=== PATIENT | female | born 1950 | race Caucasian/White ===

== ENCOUNTER → 2016-03-04 | Outpatient (REF) ==
[~2016-03-04] MED LIST: BYETTA 5MC300 MCG/SY SC; CALMOSEPTINE OI71 GM TP; CELEXA 20MG20 MG/TAB PO; CETAPHIL1 CRE TP; COLACE 100100 MG/CAP PO; COUMADIN4 MG PO; FENTANYL 75MCG TD; FERROUS SULFATE65 MG PO; FOLIC ACID 11 MG/TA1 PO; GLUCOPHAGE850 MG/TAB PO; INSULIN HUMA100 U/ML SC; INTESTINEX1 CA1 PO; LASIX 40MG TABL40 MG PO; MIRALAX PA17 GM/Dose PO; MOBIC15 MG PO; MULTIVITAMIN1 CTB PO; NEURONTIN400 MG/CAP PO; PAIN RELIE MM; PHENERGAN50 MG/SUPP RC; PRILOSEC 20MG20 MG PO; SYNTHROID0.075 MG/T PO; TUMS500 MG PO; ULTRAM 50MG TAB50 MG PO; VICKS VAPORUB 41 OIN TP; XANAX .25M0.25 MG/TA PO; ZOFRAN8 MG PO; [UNRECOGNIZED DRUG - OTHER] TP
== END ==
LOC: ZLAB.WCH 09:46
DX: Z01.89 Encounter for other specified special examinations (principal)

== ENCOUNTER → 2016-06-08 | Outpatient (CLI) | payer MEDICARE, MEDICAID | LOC: BHSO 14:06 | DX: F33.42 Major depressive disorder, recurrent, in full remission (principal) ==

== ENCOUNTER → 2016-06-24 | Outpatient (CLI) | payer MEDICARE, MEDICAID | LOC: COL.RAD 10:22 | DX: K74.69 Other cirrhosis of liver (principal); R16.1 Splenomegaly, not elsewhere classified; K80.20 Calculus of gallbladder without cholecystitis without obstruction; I86.8 Varicose veins of other specified sites ==

== ENCOUNTER 2019-07-12 17:06 | Inpatient (IN) | payer MEDICARE ==
[~2019-07-12] VITALS: Ht 172.7 cm; Wt 143.2 kg
[2019-07-12] VITALS (65 sets, daily range): BP systolic 192–200; BP diastolic 66–73; PULSE 70–74; TEMP 98.2; O2SAT 79–100
[2019-07-12 17:40] LABS: BASO % 0.8 % (0.0-2.0); EOS # 0.1 (0.0-0.7); EOS % 2.2 % (0-4.0); GRAN # 3.6 (1.4-6.5); GRAN % 70.9 % (42.2-75.2); HEMATOCRIT 29.1 % (37.0-47.0); HEMOGLOBIN 9.6 g/dl (12.5-16.0); LYMPH # 0.9 (1.2-3.4); LYMPH % 18.7 % (20.0-51.0); MEAN CELL VOLUME 99 fl (80.0-100.0); MEAN CORPUSCULAR HEMOGLOBIN 33 pg (27.0-31.0); MEAN CORPUSCULAR HGB CONC 33 g/dl (33.0-37.0); MONO # 0.4 (0.1-0.6); PLATELET COUNT 99 K/mm3 (130-400); RED BLOOD COUNT 2.93 M/mm3 (4.10-5.30); REDCELL DISTRIBUTION WIDTH-CV 14.8 % (11.5-14.5)
[2019-07-12 17:49] LABS: ALBUMIN 2.4 gm/dL (3.5-5.0); BILIRUBIN,TOTAL 1.1 mg/dL (0.0-1.0); CALCIUM 7.7 mg/dL (8.4-10.2); CREATININE, serum 1.52 (0.52-1.25); POTASSIUM 3.5 mmol/L (3.4-5.0); TOTAL PROTEIN 6.2 gm/dL (6.4-8.2)
[2019-07-12 18:10] LABS: TROPONIN-I 0.037 ng/mL (0.000-0.035)
[2019-07-12] MEDS ORDERED: LANTUS100 U/ML SQ (18:32)
[2019-07-12 18:33] LABS: COLLECTION METHOD CATHETER
[2019-07-12] MEDS ORDERED: HUMALOG100 U/ML SQ (18:34)
[2019-07-12] MEDS ORDERED: LASIX 20MG TABL20 MG PO (18:35)
[2019-07-12] MEDS ORDERED: CRESTOR20 MG PO (18:35)
[2019-07-12 18:51] LABS: BUDDING YEAST Present /hpf; MUCOUS Present /lpf; PH 5 (5-8); SQUAMOUS EPITHELIAL None Seen /hpf; URINE APPEARANCE Hazy; URINE BACTERIA Many /hpf; URINE BILIRUBIN Negative (NEGATIVE); URINE BLOOD 1+ (NEGATIVE); URINE COLOR Amber; URINE GLUCOSE Negative (NEGATIVE); URINE KETONE Negative (NEGATIVE); URINE LEUKOCYTE ESTERASE Negative (NEGATIVE); URINE NITRATE Negative (NEGATIVE); URINE PROTEIN(semi-quant) 3+ (NEGATIVE)
--- NOTE | 2019-07-12 21:30 | NUR ---
Arrived via stretcher; alert and oriented upon arrival. Patient became very anxious and fearful during transfer from ED cot to ICU bed. Staff utilized verbal cues to assist with calming patient. Reported feeling better after being able to sit up on edge of bed for a few minutes.
[2019-07-12 22:01] LABS: ARTERIAL BLD GAS O2 SATURATION 97.2 % (92-100); ARTERIAL BLD GAS TCO2 CT 23.2; ARTERIAL BLOOD GAS BASE EXCESS -1.8 (-2-2); ARTERIAL BLOOD GAS HCO3 22.1 meq/L (22-26); ARTERIAL BLOOD GAS PCO2 33.7 mmHg (35-45); ARTERIAL BLOOD GAS PO2 90.9 mmHg (80-100); ARTERIAL BLOOD GAS pH 7.44 (7.35-7.45)
[2019-07-12] MEDS ORDERED: ACCUPRIL10 M1 PO (22:28)
[2019-07-13] VITALS (679 sets, daily range): BP systolic 149–190; BP diastolic 51–90; PULSE 57–88; TEMP 98.2–98.7; O2SAT 74–100
--- NOTE | 2019-07-13 05:06 | NUR ---
Resting in bed; no concerns at this time.
--- NOTE | 2019-07-13 07:30 | NUR ---
BEDSIDE REPORT RECEIVED FROM AGA WEIR. PATIENT LYING IN BED C/O IV IN RIGHT FOREARM. PATIENT HAS NITRO GTT INFUSING AT THIS TIME. IV APPEARS TO BE FINE, BUT WHEN PALPATED, SHE C/O PAIN. IV DISCONTINUED AND ANOTHER IV STARTED IN SAME ARM, DIFFERENT SITE. PATIENT PLEASED WITH THIS CHANGE. WILL CONTINUE TO MONITOR.
[2019-07-13 09:29] LABS: BASO % 0.7 % (0.0-2.0); EOS # 0.1 (0.0-0.7); EOS % 2.7 % (0-4.0); GRAN # 2.6 (1.4-6.5); GRAN % 63.7 % (42.2-75.2); LYMPH % 24.5 % (20.0-51.0); MEAN CELL VOLUME 98 fl (80.0-100.0); MEAN CORPUSCULAR HGB CONC 35 g/dl (33.0-37.0); MEAN PLATELET VOLUME 9.1 fl (7.4-10.4); MONO # 0.3 (0.1-0.6); MONO % 8.2 % (1.7-9.3); PLATELET COUNT 83 K/mm3 (130-400); RED BLOOD COUNT 2.45 M/mm3 (4.10-5.30); REDCELL DISTRIBUTION WIDTH-CV 14.7 % (11.5-14.5)
[2019-07-13 09:42] LABS: BILIRUBIN,TOTAL 1.3 mg/dL (0.0-1.0); CALCIUM 7.7 mg/dL (8.4-10.2); CREATININE, serum 1.52 (0.52-1.25); POTASSIUM 3.6 mmol/L (3.4-5.0); TOTAL PROTEIN 5.2 gm/dL (6.4-8.2)
[2019-07-13 09:44] LABS: HEMOGLOBIN 8.3 g/dl (12.5-16.0); MEAN CORPUSCULAR HEMOGLOBIN 34 pg (27.0-31.0)
--- NOTE | 2019-07-13 15:36 | NUR ---
PATIENT UP TO RECLINER THIS AM. THEN MOVED TO WHEELCHAIR D/T DISCOMFORT, AND THEN AFTER LUNCH, PATIENT IS MOVED BACK TO BED. SHE IS 2:1 ASSIST AND HAS A LOT OF ANXIETY WITH TRANSFERS. WILL CONTINUE TO MONITOR
--- NOTE | 2019-07-13 16:50 | NUR ---
TATE met with the patient to discuss discharge plan. The patient lives alone in [place]. Her daughter, Lena Mtz" (ph#[phone]), also lives in [place]. She reports needing some assistance with bathing and has a walker and wheelchair. She receives private duty services from [facility] three times a week to assist her with bathing and housekeeping. The patient's PCP is Dr. Magnus Garrison and she receives her medications at [facility]. She reports occasional difficulties affording her meds. The patient does not have advanced directives in EMR, but she reports that she believe she has them completed and that her daughter has the documents. She states that she would have designated Lena as her DPOA-HC. The patient has three children: Lena, Saray, and Héctor. The patient plans to return home upon discharge. She states that she would be interested in home health services for correction. TATE provided the patient with Medicare.gov's list of home health agencies that serve [place]. The patient reports that she would like some time to look over the list. SW to continue to follow.
--- NOTE | 2019-07-13 19:13 | NUR ---
REPORT GIVEN TO AGA WEIR. PATIENT RESTING IN BED WITH NO COMPLAINTS. VSS
--- NOTE | 2019-07-13 20:45 | NUR ---
Assisted up to bedside commode via two assist. Patient anxious and hesitant while standing up. Staff assisted with verbal cues to help reassure patient during transfer. Assisted back to bed. Patient reported feeling "much better" after emptying bladder. Assisted with bed bath at this time. Will continue to monitor.
--- NOTE | 2019-07-13 21:50 | NUR ---
Updated daughter on patient's status via phone. Questions and concerns addressed at this time.
[2019-07-14] VITALS (710 sets, daily range): BP systolic 117–163; BP diastolic 43–68; PULSE 56–62; TEMP 98.5–98.9; O2SAT 73–100
--- NOTE | 2019-07-14 03:57 | NUR ---
Resting in bed with eyes shut; no concerns or complaints at this time
[2019-07-14 06:24] LABS: BASO % 0.8 % (0.0-2.0); EOS # 0.2 (0.0-0.7); EOS % 4.3 % (0-4.0); GRAN # 2.1 (1.4-6.5); GRAN % 53.5 % (42.2-75.2); LYMPH # 1.3 (1.2-3.4); LYMPH % 32.7 % (20.0-51.0); MEAN CELL VOLUME 100 fl (80.0-100.0); MEAN CORPUSCULAR HGB CONC 33 g/dl (33.0-37.0); MEAN PLATELET VOLUME 9.2 fl (7.4-10.4); MONO # 0.3 (0.1-0.6); MONO % 8.4 % (1.7-9.3); PLATELET COUNT 81 K/mm3 (130-400); RED BLOOD COUNT 2.26 M/mm3 (4.10-5.30); REDCELL DISTRIBUTION WIDTH-CV 14.7 % (11.5-14.5)
[2019-07-14 06:26] LABS: HEMATOCRIT 22.7 % (37.0-47.0); HEMOGLOBIN 7.5 g/dl (12.5-16.0); MEAN CORPUSCULAR HEMOGLOBIN 33 pg (27.0-31.0)
[2019-07-14 06:33] LABS: CALCIUM 7.6 mg/dL (8.4-10.2); CREATININE, serum 1.62 (0.52-1.25); MAGNESIUM 1.9 mg/dL (1.6-2.3); POTASSIUM 3.3 mmol/L (3.4-5.0)
[2019-07-14 07:04] LABS: TSH w REFLEX 9.26 uIU/mL (0.465-4.680)
--- NOTE | 2019-07-14 08:00 | NUR ---
Shift assessment complete at this time. Plan of care reviewed at bedside with patient. Additional time taken to address any other needs or concerns. Vitals stable at this time. Pt denies pain or any other discomforts. Bed in low position, call light within reach, will continue to monitor.
--- NOTE | 2019-07-14 14:00 | NUR ---
Called Dr Grant to clarify discharge orders. Pt is not to be discharged today. Pt to remain inpatient, medical status.
--- NOTE | 2019-07-14 14:55 | NUR ---
Phone report given to [facility] RN.
--- NOTE | 2019-07-14 15:25 | NUR ---
Pt transferred to room 355 via personal wheelchair. Pt transferred to bed with x1 assist. HOB up at 45 degrees. Heels elevated on pillow. Call light within reach. Nurses station notified pt arrived and request another pillow.
--- NOTE | 2019-07-14 20:00 | NUR ---
Received report from [facility]. Patient is awake, lying in bed. She is alert and oriented. Noted to have +3 bilateral lower extremity edema, With INT on left AC. Assisted patient to bedside commode to urinate. She can get up with one assist. She complains of pain in the back but she thinks it's because of the bed but she refuses for any pain meds. Call light within reach.
--- NOTE | 2019-07-14 23:00 | NUR ---
Patient's INT starts to leak when tried to flush. This nurse tried to reinsert but failed. Charge nurse Aryan tried to reinsert as well but failed. Pharmacy General Manager tried and was able to insert on right hand, G22.
[2019-07-15 00:13] VITALS: BP 170/41; PULSE 57; TEMP 97.8
[2019-07-15 04:36] VITALS: BP 150/34; PULSE 56; TEMP 97.8
--- NOTE | 2019-07-15 06:31 | NUR ---
Patient was up every 2 hours to urinate in bedside commode. She complains of pain on her back which is 9/10. Tylenol PRN given. Will endorse to day shift nurse.
[2019-07-15 07:55] LABS: BASO % 0.9 % (0.0-2.0); EOS # 0.2 (0.0-0.7); EOS % 4.7 % (0-4.0); GRAN # 2.3 (1.4-6.5); GRAN % 55.2 % (42.2-75.2); LYMPH # 1.3 (1.2-3.4); LYMPH % 29.8 % (20.0-51.0); MEAN CELL VOLUME 100 fl (80.0-100.0); MEAN CORPUSCULAR HGB CONC 34 g/dl (33.0-37.0); MEAN PLATELET VOLUME 9.6 fl (7.4-10.4); MONO # 0.4 (0.1-0.6); MONO % 9.2 % (1.7-9.3); PLATELET COUNT 88 K/mm3 (130-400); RED BLOOD COUNT 2.34 M/mm3 (4.10-5.30); RETIC # 0.11 M/mm3 (0.02-0.16); RETIC % 4.8 % (0.5-3.52)
[2019-07-15 07:56] VITALS: BP 142/36; PULSE 57; TEMP 98.1
[2019-07-15 08:02] LABS: HEMATOCRIT 23.5 % (37.0-47.0); HEMOGLOBIN 7.9 g/dl (12.5-16.0); MEAN CORPUSCULAR HEMOGLOBIN 34 pg (27.0-31.0)
[2019-07-15 08:04] LABS: INR 1.2 (0.8-3.0); PROTHROMBIN TIME 13.3 SECONDS (9.7-12.8)
[2019-07-15 08:14] LABS: CALCIUM 7.6 mg/dL (8.4-10.2); CREATININE, serum 1.7 (0.52-1.25); IRON,SERUM 74 ug/dL (35-150); MAGNESIUM 1.8 mg/dL (1.6-2.3); POTASSIUM 3.6 mmol/L (3.4-5.0)
[2019-07-15 08:24] LABS: TOTAL IRON BINDING CAPACITY 216 ug/dL (265-497)
[2019-07-15 12:08] VITALS: BP 145/40; PULSE 56; TEMP 98.2
[2019-07-15 16:09] VITALS: BP 130/36; PULSE 57; TEMP 97.8
[2019-07-15 20:17] VITALS: BP 158/57; PULSE 61; TEMP 98
--- NOTE | 2019-07-15 20:30 | NUR ---
Initial shift assessment done- needing to use BSC- 2 person assist up to BSC, pt states shes not voiding as much as when she was on IV lasix{now on p.o lasix} states having back pain 5/10, anxious when trying to get up/back to bed-- will give xanax at this time also, Tele on.
[2019-07-16 00:56] VITALS: BP 160/33; PULSE 58; TEMP 98.6
[2019-07-16 04:19] VITALS: BP 147/40; PULSE 59; TEMP 97.6
--- NOTE | 2019-07-16 04:45 | NUR ---
Will give Tramadol and Xanax at this time, states back pain 09/30, anxious, up to BSC with 2 assists- Tele on, VSS
[2019-07-16 07:07] VITALS: BP 151/39; PULSE 56; TEMP 97.7
[2019-07-16 07:20] LABS: BASO % 0.9 % (0.0-2.0); EOS # 0.1 (0.0-0.7); EOS % 4.3 % (0-4.0); GRAN # 1.8 (1.4-6.5); GRAN % 54.5 % (42.2-75.2); LYMPH % 31.4 % (20.0-51.0); MEAN CELL VOLUME 102 fl (80.0-100.0); MEAN CORPUSCULAR HGB CONC 33 g/dl (33.0-37.0); MEAN PLATELET VOLUME 9.3 fl (7.4-10.4); MONO # 0.3 (0.1-0.6); MONO % 8.6 % (1.7-9.3); PLATELET COUNT 76 K/mm3 (130-400); RED BLOOD COUNT 2.31 M/mm3 (4.10-5.30); REDCELL DISTRIBUTION WIDTH-CV 15.3 % (11.5-14.5)
[2019-07-16 07:27] LABS: BILIRUBIN,TOTAL 1.1 mg/dL (0.0-1.0); CALCIUM 7.5 mg/dL (8.4-10.2); CREATININE, serum 1.95 (0.52-1.25); MAGNESIUM 1.8 mg/dL (1.6-2.3); POTASSIUM 3.5 mmol/L (3.4-5.0); TOTAL PROTEIN 5.3 gm/dL (6.4-8.2)
[2019-07-16 07:32] LABS: HEMATOCRIT 23.5 % (37.0-47.0); HEMOGLOBIN 7.7 g/dl (12.5-16.0); MEAN CORPUSCULAR HEMOGLOBIN 33 pg (27.0-31.0)
--- NOTE | 2019-07-16 08:37 | NUR ---
Pt awake and alert upon entry, some C/O pain this morning, shift assessments complete, left Pt call light in reach, bed in lowest position.
[2019-07-16] MEDS ORDERED: DIFLUCAN200 MG PO (09:33)
[2019-07-16] MEDS ORDERED: APRESOLINE50 MG PO ×3 (09:34→11:29)
[2019-07-16] MEDS ORDERED: ALDACTONE 25MG25 M1 PO ×2 (09:34)
[2019-07-16] MEDS ORDERED: LASIX 80MG TABL80 MG PO ×2 (09:35)
[2019-07-16] MEDS ORDERED: K-DUR20 MEQ PO (11:29)
[2019-07-16] MEDS ORDERED: LASIX 40MG TABL40 MG PO (11:29)
--- NOTE | 2019-07-16 11:50 | NUR ---
TATE was contacted by the pediatric acute care unit nurse and notified the hospitalist is recommending home health for the patient. TATE contacted the patient and she was agreeable to home health and from [facility]. TATE contacted and faxed a referral to Michelle at [facility]. [facility] reports that they are able to accept the patient for services. The patient is to discharge back home today, 07/15, with home health services for usp/PT/OT through [facility]. No additional needs at this time.
--- NOTE | 2019-07-16 13:32 | NUR ---
Pt discharged to home, discussed discharge instructions with Pt, answered all questions. Escorted Pt to entrance with PCT, assisted Pt into vehicle, Pt left with family via private transportation.
== END 2019-07-16 12:45 | disposition home or self-care (01) | DRG 291 ==
LOC: COL.ER 17:06 → ICU 18:41 → MEDICAL 07-14 15:11
PROVIDERS: Emergency Medicine; Internal Medicine; Internal Medicine Critical Care Medicine; Nurse Practitioner Family; ADMIT Student in an Organized Health Care Education/Training Program
DX: I13.0 Hypertensive heart and chronic kidney disease with heart failure and stage 1 through stage 4 chronic kidney disease, or unspecified chronic kidney disease (principal); I50.33 Acute on chronic diastolic (congestive) heart failure; D61.818 Other pancytopenia; N39.0 Urinary tract infection, site not specified; E87.70 Fluid overload, unspecified; E11.22 Type 2 diabetes mellitus with diabetic chronic kidney disease; E78.5 Hyperlipidemia, unspecified; E03.9 Hypothyroidism, unspecified; G89.29 Other chronic pain; K74.60 Unspecified cirrhosis of liver; N18.3 Chronic kidney disease, stage 3 (moderate); E66.01 Morbid (severe) obesity due to excess calories; B96.89 Other specified bacterial agents as the cause of diseases classified elsewhere; R00.1 Bradycardia, unspecified; K72.90 Hepatic failure, unspecified without coma; D69.6 Thrombocytopenia, unspecified; Z86.718 Personal history of other venous thrombosis and embolism; Z79.4 Long term (current) use of insulin
CPT/HCPCS: 99223-AI; 99232-AI; 99239; J1450; J1644; J1815; J1940; J2405

== ENCOUNTER → 2019-08-21 | Outpatient (CLI) | payer MEDICARE ==
[~2019-08-21] MED LIST changes: +ACCUPRIL10 M1 PO; +ALDACTONE 25MG25 M1 PO; +APRESOLINE50 MG PO; +CRESTOR20 MG PO; +DIFLUCAN200 MG PO; +HUMALOG100 U/ML SQ; +K-DUR20 MEQ PO; +LANTUS100 U/ML SQ; +LASIX 20MG TABL20 MG PO; +LASIX 80MG TABL80 MG PO
== END ==
LOC: COL.RAD 08:59
DX: D61.818 Other pancytopenia (principal); R16.1 Splenomegaly, not elsewhere classified

== ENCOUNTER 2019-11-11 14:05 | Inpatient (IN) | payer MEDICARE ==
[2019-11-11] VITALS (188 sets, daily range): BP systolic 170; BP diastolic 58; PULSE 72–75; TEMP 97.8–98; O2SAT 98–100
[~2019-11-11] VITALS: Ht 175.3 cm; Wt 126.0 kg
[2019-11-11 15:08] LABS: BASO % 0.9 % (0.0-2.0); EOS # 0.1 (0.0-0.7); EOS % 1.8 % (0-4.0); GRAN # 2.4 (1.4-6.5); GRAN % 72.4 % (42.2-75.2); LYMPH # 0.5 (1.2-3.4); LYMPH % 16.4 % (20.0-51.0); MEAN CELL VOLUME 100 fl (80.0-100.0); MEAN CORPUSCULAR HGB CONC 32 g/dl (33.0-37.0); MEAN PLATELET VOLUME 10.4 fl (7.4-10.4); MONO # 0.3 (0.1-0.6); MONO % 8.2 % (1.7-9.3); PLATELET COUNT 69 K/mm3 (130-400); RED BLOOD COUNT 2.49 M/mm3 (4.10-5.30); REDCELL DISTRIBUTION WIDTH-CV 14.2 % (11.5-14.5)
[2019-11-11 15:17] LABS: HEMATOCRIT 24.8 % (37.0-47.0); HEMOGLOBIN 7.9 g/dl (12.5-16.0); MEAN CORPUSCULAR HEMOGLOBIN 32 pg (27.0-31.0)
[2019-11-11 15:33] LABS: ALBUMIN 2.8 gm/dL (3.5-5.0); BILIRUBIN,TOTAL 0.6 mg/dL (0.0-1.0); CALCIUM 8.1 mg/dL (8.4-10.2); CREATININE, serum 1.86 (0.52-1.25); POTASSIUM 3.9 mmol/L (3.4-5.0); TOTAL PROTEIN 5.9 gm/dL (6.4-8.2)
[2019-11-11 16:29] LABS: COLLECTION METHOD CLEAN CATCH
[2019-11-11 16:38] LABS: PH 5 (5-8); SQUAMOUS EPITHELIAL 0-2 /hpf; URINE APPEARANCE Cloudy; URINE BACTERIA Moderate /hpf; URINE BILIRUBIN Negative (NEGATIVE); URINE BLOOD Negative (NEGATIVE); URINE COLOR Yellow; URINE GLUCOSE Negative (NEGATIVE); URINE KETONE Negative (NEGATIVE); URINE LEUKOCYTE ESTERASE 3+ (NEGATIVE); URINE NITRATE Negative (NEGATIVE); URINE PROTEIN(semi-quant) 1+ (NEGATIVE); URINE RBC 0-2 /hpf; URINE UROBILINOGEN Negative (NEGATIVE)
--- NOTE | 2019-11-11 19:12 | NUR ---
Bedside report received from AGA Li
[2019-11-11] MEDS ORDERED: ALDACTONE 25MG25 M1 PO (19:20)
[2019-11-11] MEDS ORDERED: COLACE 100100 MG/CAP PO (19:25)
[2019-11-11] MEDS ORDERED: VELTASSA8.4 GM PO (19:25)
[2019-11-11] MEDS ORDERED: ATARAX50 MG PO (19:27)
--- NOTE | 2019-11-11 20:00 | NUR ---
Patient resting in bed talking to daughter, Elvis, at bedside. Assessment complete. Patient requests to get up to the restroom. Walker obtained and bedside commode, with assistance of AGA Bojorquez, we ae able to get patient up to the commode and back to bed. Assisted patient to a comfortable position. Medications given. No further needs at this time. Will continue to monitor. Call light within reach.
[2019-11-11] MEDS ORDERED: APRESOLINE50 MG PO (21:39)
[2019-11-12] VITALS (611 sets, daily range): BP systolic 132–154; BP diastolic 34–61; PULSE 59–72; TEMP 97.8–99; O2SAT 96–100
[2019-11-12 05:17] LABS: BASO % 0.8 % (0.0-2.0); EOS % 1.6 % (0-4.0); GRAN # 1.8 (1.4-6.5); GRAN % 68.8 % (42.2-75.2); LYMPH # 0.5 (1.2-3.4); LYMPH % 19.7 % (20.0-51.0); MEAN CELL VOLUME 99 fl (80.0-100.0); MEAN CORPUSCULAR HGB CONC 32 g/dl (33.0-37.0); MEAN PLATELET VOLUME 9.9 fl (7.4-10.4); MONO # 0.2 (0.1-0.6); MONO % 8.7 % (1.7-9.3); PLATELET COUNT 56 K/mm3 (130-400); RED BLOOD COUNT 2.13 M/mm3 (4.10-5.30); REDCELL DISTRIBUTION WIDTH-CV 14.4 % (11.5-14.5)
[2019-11-12 05:20] LABS: MEAN CORPUSCULAR HEMOGLOBIN 32 pg (27.0-31.0)
[2019-11-12 05:22] LABS: HEMOGLOBIN 6.8 g/dl (12.5-16.0)
[2019-11-12 05:33] LABS: CALCIUM 8.1 mg/dL (8.4-10.2); CREATININE, serum 1.94 (0.52-1.25); POTASSIUM 4.3 mmol/L (3.4-5.0)
--- NOTE | 2019-11-12 07:33 | NUR ---
Bedside report givent to AGA Martin
--- NOTE | 2019-11-12 15:05 | NUR ---
vineyard worker met with patient to assess for discharge plan. Patient states she lives alone in a senior apartment and that it is handicap accessible. Patient states she has a caregiver that comes into her home 3x's week and assists with activities of daily living, including errands and groceries. Patient states that her two daughters and son also see her daily/weekly and assist with needs. Patient states she is wheelchair bound and can transfer self to chair and toilet. patient's primary continuum of care manager is Dr Decker, that took over for Dr Warren and that she hasn't had her first appointment yet. Patient states she has advance directives on file with the hospital. Patient states she has prescription coverage with a co pay and that she has no concerns for securing medications at this time. Patient is receiving blood this morning during our visit and is very adament that she wants to return home soon.
[2019-11-12 15:30] LABS: IRON,SERUM 75 ug/dL (35-150)
[2019-11-12 15:40] LABS: TOTAL IRON BINDING CAPACITY 269 ug/dL (265-497)
--- NOTE | 2019-11-12 19:10 | NUR ---
Bedside report received from AGA Martin
--- NOTE | 2019-11-12 20:00 | NUR ---
Patient in chair resting with this nurse and her daughter, Saray, helping with a bath and lotion application. Patient changed into new night gown. Assessment complete, see shift assessment for details. Vitals obtained and remain stable. patient has complaints of some pain, but only with movement or touch, and does not request meds at this time. Patient has no further needs. Will continue to monitor. Call light within reach.
--- NOTE | 2019-11-12 22:07 | NUR ---
24hr urine collection started at this time
[2019-11-13] VITALS (326 sets, daily range): BP systolic 117–152; BP diastolic 23–48; PULSE 58–70; TEMP 97.9–98.4; O2SAT 94–100
[2019-11-13 06:20] LABS: BASO % 0.7 % (0.0-2.0); EOS # 0.1 (0.0-0.7); EOS % 4.1 % (0-4.0); GRAN # 1.4 (1.4-6.5); GRAN % 53.6 % (42.2-75.2); HEMATOCRIT 23.9 % (37.0-47.0); HEMOGLOBIN 7.9 g/dl (12.5-16.0); LYMPH # 0.9 (1.2-3.4); LYMPH % 32.7 % (20.0-51.0); MEAN CELL VOLUME 97 fl (80.0-100.0); MEAN CORPUSCULAR HEMOGLOBIN 32 pg (27.0-31.0); MEAN CORPUSCULAR HGB CONC 33 g/dl (33.0-37.0); MEAN PLATELET VOLUME 9.3 fl (7.4-10.4); MONO # 0.2 (0.1-0.6); MONO % 8.2 % (1.7-9.3); PLATELET COUNT 55 K/mm3 (130-400); RED BLOOD COUNT 2.47 M/mm3 (4.10-5.30); REDCELL DISTRIBUTION WIDTH-CV 14.7 % (11.5-14.5)
[2019-11-13 06:33] LABS: ALBUMIN 2.7 gm/dL (3.5-5.0); BILIRUBIN,TOTAL 0.8 mg/dL (0.0-1.0); CALCIUM 7.9 mg/dL (8.4-10.2); CREATININE, serum 2.09 (0.52-1.25); TOTAL PROTEIN 5.7 gm/dL (6.4-8.2)
--- NOTE | 2019-11-13 07:12 | NUR ---
Bedside report given to AGA Li
[2019-11-13 09:00] LABS: KAPPA FREE LIGHT CHAIN-SERUM 102.15 mg/L (()); KAPPA LAMBDA RATIO 1.68 ratio (()); LAMDA FREE LIGHT CHAIN SERUM 60.81 mg/L (())
--- NOTE | 2019-11-13 10:27 | NUR ---
Report given to AGA Moreau up on medical floor. Patient will be going to room 351.
--- NOTE | 2019-11-13 10:56 | NUR ---
The patient tranferred up to the medical floor this morning. SW to continue to follow as needed.
--- NOTE | 2019-11-13 11:30 | NUR ---
Patient arrived to the floor at this time. She is stable and comfortable currently sitting in her wheel chair, wheels locked with bedside table in front of her. She states that she would like to stay like this and does not want to move at this time. Lung sounds are clear, diminished at the bases. Normal heart sounds. Pulses palpable both radial and pedal. No other needs were expressed at this time. Call light is in reach.
--- NOTE | 2019-11-13 18:45 | NUR ---
Patient has been stable since arriving to the floor. She has been to the BSC twice to urinate, 24 urine still being collected. She pivots well but has left leg weakness. She moved from the bed to the chair at this time and says she will stay there for a while. No other needs were expressed at this time. Call light is in reach.
--- NOTE | 2019-11-13 20:30 | NUR ---
Initial shift assessment done- sitting in recliner, states will sit for awhile longer , than will call to get back to bed- states needs to have a BM, hasfrederic had one since Tuesday--no prn ordered,so will call TRAVELING AUDITOR for stool softener. 24 hr urine in progress-will be done at 2200 tonight. Left INT painful--will dc and restart another INT
[2019-11-14] VITALS (8 sets, daily range): BP systolic 123–142; BP diastolic 21–36; PULSE 56–62; TEMP 97.7–98.6
--- NOTE | 2019-11-14 05:00 | NUR ---
Did get up to BSC with 2 asssists- slow and needs alot of encouragement. Seizure prec in place.
[2019-11-14 08:55] LABS: BASO % 0.4 % (0.0-2.0); EOS # 0.1 (0.0-0.7); EOS % 3.8 % (0-4.0); GRAN # 1.4 (1.4-6.5); GRAN % 54.4 % (42.2-75.2); LYMPH # 0.8 (1.2-3.4); LYMPH % 31.8 % (20.0-51.0); MEAN CELL VOLUME 98 fl (80.0-100.0); MEAN CORPUSCULAR HGB CONC 33 g/dl (33.0-37.0); MEAN PLATELET VOLUME 9.8 fl (7.4-10.4); MONO # 0.2 (0.1-0.6); MONO % 9.2 % (1.7-9.3); PLATELET COUNT 51 K/mm3 (130-400); RED BLOOD COUNT 2.43 M/mm3 (4.10-5.30); REDCELL DISTRIBUTION WIDTH-CV 14.6 % (11.5-14.5)
[2019-11-14 08:57] LABS: HEMATOCRIT 23.9 % (37.0-47.0); HEMOGLOBIN 7.8 g/dl (12.5-16.0); MEAN CORPUSCULAR HEMOGLOBIN 32 pg (27.0-31.0)
--- NOTE | 2019-11-14 09:00 | NUR ---
Assessment completed, alert/oriented, vital signs stable, reports generalized "all over" aches, blood sugars are WNL and no neuro deficits noted, patient is weak but is able to get up and transfer with a stand by only assist, heart RRR, distal pulses are palpable, 2+ edema to BLE and feet, lungs CTA/ no respl.difficulty noted, fluid restriction in place, 24hr urine in progress and will be complete at 2200, she refuses SCD's,
[2019-11-14 09:04] LABS: CALCIUM 7.7 mg/dL (8.4-10.2); CREATININE, serum 2.04 (0.52-1.25); POTASSIUM 4.1 mmol/L (3.4-5.0)
--- NOTE | 2019-11-14 11:42 | NUR ---
First visit from the insulating machine operator. No needs right now.
--- NOTE | 2019-11-14 21:00 | NUR ---
Pt assessment completed and documented. Pt alert and oriented x4. Pt assisted from recliner to commode and then her bed. PRN tylenol given per pt request for complaints of hip and buttock pain. INT to right forearm CDI. Pt denies any other needs at this time. Call light within reach. Will continue to monitor
[2019-11-15 03:29] VITALS: BP 132/33; PULSE 61; TEMP 98.4
--- NOTE | 2019-11-15 05:15 | NUR ---
Pt rested intermittently overnight. States she is ready to be home so she can sleep in her recliner. No further reports of pain after PRN tylenol was given per request. Pt denies any other needs at this time. Call light within reach
--- NOTE | 2019-11-15 06:40 | NUR ---
Report given to AGA Lopez
[2019-11-15 07:35] LABS: BASO % 0.9 % (0.0-2.0); EOS # 0.1 (0.0-0.7); EOS % 3.8 % (0-4.0); GRAN # 1.3 (1.4-6.5); GRAN % 53.6 % (42.2-75.2); LYMPH # 0.7 (1.2-3.4); LYMPH % 31.5 % (20.0-51.0); MEAN CELL VOLUME 97 fl (80.0-100.0); MEAN CORPUSCULAR HGB CONC 33 g/dl (33.0-37.0); MEAN PLATELET VOLUME 9.9 fl (7.4-10.4); MONO # 0.2 (0.1-0.6); MONO % 9.8 % (1.7-9.3); PLATELET COUNT 55 K/mm3 (130-400); RED BLOOD COUNT 2.46 M/mm3 (4.10-5.30); REDCELL DISTRIBUTION WIDTH-CV 14.5 % (11.5-14.5)
[2019-11-15 07:36] LABS: HEMATOCRIT 23.8 % (37.0-47.0); HEMOGLOBIN 7.9 g/dl (12.5-16.0); MEAN CORPUSCULAR HEMOGLOBIN 32 pg (27.0-31.0)
[2019-11-15 07:46] LABS: CALCIUM 7.7 mg/dL (8.4-10.2); CREATININE, serum 2.18 (0.52-1.25); POTASSIUM 4.3 mmol/L (3.4-5.0)
--- NOTE | 2019-11-15 07:51 | NUR ---
Complains of bilateral leg and hip pain 07/31. PRN Tylenol provided. Denies urinary discomfort at this time.
[2019-11-15 08:00] VITALS: BP 134/42; PULSE 57; TEMP 97.9
[2019-11-15] MEDS ORDERED: CEFTIN 250250 MG/TAB PO (08:43)
[2019-11-15] MEDS ORDERED: APRESOLINE50 MG PO (09:00)
[2019-11-15] MEDS ORDERED: SODIUM BICARBO650 MG PO (09:01)
--- NOTE | 2019-11-15 09:07 | NUR ---
Clarified medication orders with primary nurse due to low diastolic. Primary advised to continue with current orders. See eMAR.
[2019-11-15 12:06] VITALS: BP 134/33; PULSE 56; TEMP 98.1
--- NOTE | 2019-11-15 12:56 | NUR ---
Clod Puller attended clinical rounds with the team and patient to discharge home today. Patient's daughter, Elvis on speakerphone during rounds. SW followed up with patient to review discharge plan. Patient states she has a lift chair, wheelchair, and several grab bars at home. Patient reports she has services from [facility] and that her daughters are also supportive. Patient states [facility] have done Physical Therapy before with her, but she doesn't feel she needs any PT at this time. TATE read IM form aloud to patient who verbalized understanding and gave SW permission to sign on her behalf. TATE placed form in chart and provided copy to patient. TATE contacted Claire at [facility] who confirmed patient has two hour visits on Tuesday, Tuesday, Tuesday. TATE faxed discharge orders and summary to Claire at [facility]. No additional needs at this time.
--- NOTE | 2019-11-15 13:47 | NUR ---
Primary nurse was assisted with [id number] patient care by [employer] student Demetrice Banda and [employer] instructor Jessica Hudson RN-.
--- NOTE | 2019-11-15 14:04 | NUR ---
Discharge instructions reviewed with the patient and daughter, instructed to finish course of abx as prescribe, script sent to [facility] for her, instructed to follow up with PCP and Neph. as sheduled, IV removed, patient leaving with her daughter, I will personally escort them out the door
[2019-11-15 18:34] LABS: URINE HOURS (UPEP) 24 HOUR (())
[2019-11-16 14:00] LABS: A/G RATIO (PEP) 0.89 (()); BETA GLOBULINS (PEP) 0.7 g/dL (0.7-1.2)
== END 2019-11-15 14:06 | disposition home or self-care (01) | DRG 101 ==
LOC: COL.ER 14:05 → ICU 16:59 → MEDICAL 11-13 11:45
PROVIDERS: Emergency Medicine; Family Medicine; Hospitalist; Internal Medicine Nephrology; Student in an Organized Health Care Education/Training Program; ADMIT Internal Medicine Pulmonary Disease
DX: G40.909 Epilepsy, unspecified, not intractable, without status epilepticus (principal); N39.0 Urinary tract infection, site not specified; E87.2 Acidosis; N18.4 Chronic kidney disease, stage 4 (severe); D61.818 Other pancytopenia; I12.9 Hypertensive chronic kidney disease with stage 1 through stage 4 chronic kidney disease, or unspecified chronic kidney disease; E78.5 Hyperlipidemia, unspecified; J44.9 Chronic obstructive pulmonary disease, unspecified; E03.9 Hypothyroidism, unspecified; F41.9 Anxiety disorder, unspecified; M54.30 Sciatica, unspecified side; R19.7 Diarrhea, unspecified; E11.65 Type 2 diabetes mellitus with hyperglycemia; E11.22 Type 2 diabetes mellitus with diabetic chronic kidney disease; D64.9 Anemia, unspecified; Z66 Do not resuscitate; K74.60 Unspecified cirrhosis of liver; E11.649 Type 2 diabetes mellitus with hypoglycemia without coma; Z79.4 Long term (current) use of insulin
CPT/HCPCS: 99231-AI; 99233-AI; 99239; G0378; J0696; J1815; J7030; P9016

== ENCOUNTER 2021-03-10 14:35 | Inpatient (IN) | payer MEDICARE ==
[~2021-03-10] VITALS: Ht 10.2 cm; Wt 157.7 kg
[~2021-03-10 14:35] MED LIST changes: +ATARAX50 MG PO; +CEFTIN 250250 MG/TAB PO; +SODIUM BICARBO650 MG PO; +VELTASSA8.4 GM PO
[2021-03-10 15:43] LABS: BASO % 0.2 % (0.0-2.0); EOS % 0.2 % (0.0-4.0); GRAN # 3.7 K/mm3 (1.4-6.5); GRAN % 83.2 % (42.2-75.2); LYMPH # 0.5 K/mm3 (1.2-3.4); LYMPH % 10.2 % (20.0-51.0); MEAN CELL VOLUME 97 fl (80.0-100.0); MEAN CORPUSCULAR HGB CONC 34 g/dl (33.0-37.0); MONO # 0.3 K/mm3 (0.1-0.6); PLATELET COUNT 65 K/mm3 (130-400); RED BLOOD COUNT 2.79 M/mm3 (4.10-5.30); REDCELL DISTRIBUTION WIDTH-CV 13.5 % (11.5-14.5)
[2021-03-10 15:45] LABS: HEMOGLOBIN 9.3 g/dl (12.5-16.0); MEAN CORPUSCULAR HEMOGLOBIN 33 pg (27-31)
[2021-03-10 15:54] LABS: BILIRUBIN,TOTAL 1.3 mg/dL (0.2-1.2); C-REACTIVE PROTEIN 3.45 mg/dL (0.00-0.50); CALCIUM 7.4 mg/dL (8.4-10.2); CREATININE, serum 2.17 mg/dL (0.57-1.11); TOTAL PROTEIN 5.9 gm/dL (6.2-8.1)
[2021-03-10 16:15] LABS: POTASSIUM 5.8 mmol/L (3.5-4.5); TROPONIN-I 0.048 ng/mL (0.00-0.033)
[2021-03-10 16:15] LABS: COLLECTION METHOD IN
[2021-03-10 16:25] LABS: MUCOUS Present (NOT PRESENT); PH 5 (5-8); SQUAMOUS EPITHELIAL 0-2 /hpf (0-10); URINE APPEARANCE Hazy (CLEAR/HAZY); URINE BACTERIA None Seen /hpf (NONE SEEN); URINE BILIRUBIN Negative (NEGATIVE); URINE BLOOD 2+ (NEGATIVE); URINE COLOR Yellow (YELLOW); URINE GLUCOSE 1+ (NEGATIVE); URINE KETONE Negative (NEGATIVE); URINE LEUKOCYTE ESTERASE Negative (NEGATIVE); URINE NITRATE Negative (NEGATIVE); URINE PROTEIN(semi-quant) 3+ (NEGATIVE); URINE UROBILINOGEN Negative (NEGATIVE)
[2021-03-10 22:20] VITALS: BP 149/39; PULSE 80; TEMP 98
[2021-03-10 23:26] VITALS: BP 116/22; PULSE 74; TEMP 98.1
[2021-03-11] VITALS (10 sets, daily range): BP systolic 95–139; BP diastolic 35–89; PULSE 72–112; TEMP 97.7–98.1
[2021-03-11 05:34] LABS: GRAN # 5.5 K/mm3 (1.4-6.5); GRAN % 80.6 % (42.2-75.2); LYMPH # 0.9 K/mm3 (1.2-3.4); LYMPH % 13.3 % (20.0-51.0); MEAN CELL VOLUME 97 fl (80.0-100.0); MEAN CORPUSCULAR HGB CONC 35 g/dl (33.0-37.0); MEAN PLATELET VOLUME 9.8 fl (7.4-10.4); MONO # 0.4 K/mm3 (0.1-0.6); MONO % 5.7 % (1.7-9.3); PLATELET COUNT 51 K/mm3 (130-400); RED BLOOD COUNT 2.25 M/mm3 (4.10-5.30); REDCELL DISTRIBUTION WIDTH-CV 13.5 % (11.5-14.5)
[2021-03-11 05:40] LABS: HEMATOCRIT 21.9 % (37.0-47.0); HEMOGLOBIN 7.6 g/dl (12.5-16.0); MEAN CORPUSCULAR HEMOGLOBIN 34 pg (27-31)
[2021-03-11 05:55] LABS: ALBUMIN 1.6 gm/dL (3.4-4.8); C-REACTIVE PROTEIN 4.23 mg/dL (0.00-0.50); CALCIUM 7.1 mg/dL (8.4-10.2); CREATININE, serum 2.21 mg/dL (0.57-1.11); MAGNESIUM 2.3 mg/dL (1.6-2.6); PHOSPHOROUS 3.8 mg/dL (2.3-4.7)
[2021-03-11 05:59] LABS: POTASSIUM 5.9 mmol/L (3.5-4.5)
--- NOTE | 2021-03-11 06:31 | NUR ---
Dr. Bella notified of patients critical potassium level of 5.9. Dr. Bella will put in new orders. Heparin drip stopped at 0625 per protocol. Hep Xa was 1.9. Next draw will be at 0830 on 03/11/2021.
--- NOTE | 2021-03-11 08:17 | NUR ---
Critical troponin of 0.064 called to Caity ACEVEDO.
--- NOTE | 2021-03-11 10:38 | NUR ---
The patient is COVID positive. SW attempted to contact the patient to complete intake. The patient did not answer. SW then contacted the patient's daughter, Saray (ph#[phone]), to discuss discharge plan. The patient lives alone in [place]. Saray reports that her sister, Tucker Castillo", lives in [place]. Saray reports that the patient is wheelchair bound and has a akbar wheelchair, that she mostly uses. She also has a powerchair. Saray reports that the patient has been independent with using the restroom, but she needs assistance with bathing. She reports that the patient has [facility] and they assist her with bathing. SW contacted and confirmed services with Tayler at [facility]. Tayler reports that their private duty side provides the assistance with bathing and that their home health side provides halfway for labs. TATE faxed updates to [facility]. Saray reports that she also provides assistance with bathing and shopping. The patient's primary care provider is CURTIS Busch and [facility]. The patient does not have a DPOA-HC in EMR. Saray reports that the patient does have one completed and that her PCP's office may have a copy. Saray reports that she will ask her sister if she has a copy. Saray reports that the patient is not and that she has three children: Karo So (ph#[phone]), and Héctor. TATE contacted the patient's PCP office to inquire if they have a DPOA-HC on file. The RN reports that they do not. Eve reports that the patient has had a lot of fluid build up in her legs. She reports that if the patient is needing SNF upon discharge, she would be open to this. PT/OT have been ordered. SW to continue to monitor. *Discharge plan: undetermined at this time*
--- NOTE | 2021-03-11 12:53 | NUR ---
HEPARIN DRIP WAS RESTARTED AT 1226 AFTER BEING OFF FOR 5.5 HOURS, ONCE HEP XA WAS WITHIN NORMAL LIMITS PER PROTOCOL. HEPARIN WAS RESTARTED AT 2000 UNITS/HR OR 20 ML/HR PER PROTOCOL OR 300 LESS THAN PREVIOUS RATE OF 2300 UNITS/HR.
--- NOTE | 2021-03-11 20:00 | NUR ---
Notifed Daily Martin of critical Hep Xa- holding Heparin per protocol will redraw in 2 hours.
--- NOTE | 2021-03-11 20:30 | NUR ---
Call placed to Daily Martin to clarify Cardiazem gtt order, NON: Hold Cardiazem at this time
--- NOTE | 2021-03-11 22:00 | NUR ---
PT critical <400, redraw labs at this time per Daily Martin.
[2021-03-12] VITALS (14 sets, daily range): BP systolic 104–165; BP diastolic 37–50; PULSE 66–76; TEMP 98.2–99
--- NOTE | 2021-03-12 00:30 | NUR ---
Received results of Hep Xa and PTT received, followed protocol and restarted Heparin gtt as ordered. Patient tolerating well, no c/o at this time.
[2021-03-12 00:34] LABS: PARTIAL THROMBOPLASTIN TIME > 400.0 SECONDS (26.0-37.0)
--- NOTE | 2021-03-12 02:37 | NUR ---
Patient resting comfortably, Heparin gtt ongoing, readjusted in bed, call light w/i reach, no s/s of bleeding, Respirations even and unlabored. Will continue to monitor.
[2021-03-12 06:55] LABS: BASO % 0.2 % (0.0-2.0); EOS % 0.2 % (0.0-4.0); GRAN # 2.7 K/mm3 (1.4-6.5); GRAN % 64.9 % (42.2-75.2); LYMPH # 1.1 K/mm3 (1.2-3.4); LYMPH % 26.8 % (20.0-51.0); MEAN CELL VOLUME 99 fl (80.0-100.0); MEAN CORPUSCULAR HGB CONC 33 g/dl (33.0-37.0); MONO # 0.3 K/mm3 (0.1-0.6); MONO % 7.2 % (1.7-9.3); PLATELET COUNT 51 K/mm3 (130-400); REDCELL DISTRIBUTION WIDTH-CV 13.7 % (11.5-14.5)
[2021-03-12 06:56] LABS: HEMATOCRIT 19.8 % (37.0-47.0); MEAN CORPUSCULAR HEMOGLOBIN 33 pg (27-31)
[2021-03-12 06:58] LABS: HEMOGLOBIN 6.6 g/dl (12.5-16.0)
[2021-03-12 07:14] LABS: ALBUMIN 1.5 gm/dL (3.4-4.8); BILIRUBIN,TOTAL 0.6 mg/dL (0.2-1.2); C-REACTIVE PROTEIN 5.51 mg/dL (0.00-0.50); CALCIUM 6.8 mg/dL (8.4-10.2); CREATININE, serum 2.26 mg/dL (0.57-1.11); MAGNESIUM 2.1 mg/dL (1.6-2.6); PHOSPHOROUS 3.1 mg/dL (2.3-4.7); POTASSIUM 4.9 mmol/L (3.5-4.5); TOTAL PROTEIN 4.5 gm/dL (6.2-8.1)
--- NOTE | 2021-03-12 09:38 | NUR ---
PT ASSESSED. NO COMPLAINTS OF NAUSEA OR DYSPNEA. COMPLAINS OF PAIN TO BOTTOM BUT REFUSES TO REPOSITION MORE THAN SITTING UP AND LAYING BACK. REFUSES TO ROLL OR HAVE A PILLOW PLACED UNDER BOTTOM.
[2021-03-13 01:05] VITALS: BP 157/53; PULSE 71; TEMP 98.6
[2021-03-13 05:45] VITALS: BP 149/44; PULSE 81; TEMP 98.6
[2021-03-13 06:19] LABS: ALBUMIN 1.7 gm/dL (3.4-4.8); BILIRUBIN,TOTAL 0.9 mg/dL (0.2-1.2); C-REACTIVE PROTEIN 5.27 mg/dL (0.00-0.50); CALCIUM 6.7 mg/dL (8.4-10.2); CREATININE, serum 2.13 mg/dL (0.57-1.11); MAGNESIUM 2.1 mg/dL (1.6-2.6); PHOSPHOROUS 3.1 mg/dL (2.3-4.7); POTASSIUM 4.5 mmol/L (3.5-4.5); TOTAL PROTEIN 4.7 gm/dL (6.2-8.1)
[2021-03-13 06:37] LABS: BASO % 0.4 % (0.0-2.0); EOS % 0.8 % (0.0-4.0); GRAN # 1.6 K/mm3 (1.4-6.5); GRAN % 61.4 % (42.2-75.2); LYMPH # 0.7 K/mm3 (1.2-3.4); LYMPH % 27.9 % (20.0-51.0); MEAN CELL VOLUME 97 fl (80.0-100.0); MEAN CORPUSCULAR HGB CONC 34 g/dl (33.0-37.0); MONO # 0.2 K/mm3 (0.1-0.6); MONO % 8.4 % (1.7-9.3); RED BLOOD COUNT 2.26 M/mm3 (4.10-5.30); REDCELL DISTRIBUTION WIDTH-CV 14.2 % (11.5-14.5)
[2021-03-13 06:41] LABS: HEMOGLOBIN 7.5 g/dl (12.5-16.0); MEAN CORPUSCULAR HEMOGLOBIN 33 pg (27-31)
[2021-03-13 06:43] LABS: PLATELET COUNT 45 K/mm3 (130-400)
[2021-03-13 08:33] VITALS: BP 136/94; PULSE 66; TEMP 98.1
--- NOTE | 2021-03-13 09:26 | NUR ---
PT ASSESSED. NO SIGNS OR SYMPTOMS OF DISTRESS. NO PAIN OR DYSPNEA COMPLAINTS. CALL LIGHT WITHIN REACH. PT STILL REFUSES TO ROLL VERY MUCH BUT DOES ATTEMPT TO USE A BEDPAN. PT UNABLE TO SIT AT EDGE OF BED WITHOUT FALLING BACKWARDS AND FEELING "EXHAUSTED". PT AT BEDISDE TO WORK WITH PT.
[2021-03-13 11:35] VITALS: BP 151/36; PULSE 68; TEMP 98.3
--- NOTE | 2021-03-13 14:42 | NUR ---
PT is recommending SNF. The patient tested positive for COVID on 03/10. SNF's have not been able to take patient's until 10 days out from their positive COVID test. TATE contacted the patient's daughter, Saray, and updated her on the above. Saray is in agreement to SNF. She states that her and her siblings do not have a preference at this time. She was open for SW to send referrals to the local facilities. She was interested in [facility]. TATE contacted and faxed a referral to [facility], [facility], and [facility]. TATE contacted Chica at [facility]. Chica reports that they are full right now and do not anticipate them even having a bed open by next week. She reports that they have a waiting list of patients. Awaiting screens. *Discharge plan: SNF*
--- NOTE | 2021-03-13 16:07 | NUR ---
Angelia, at [facility], reports that they are good to follow the patient. They want to make sure her oxygen needs remain stable and they report that they would want the patient to be able to transfer herself.
[2021-03-13 17:06] VITALS: BP 158/39; PULSE 71; TEMP 98.5
[2021-03-13 21:26] VITALS: BP 160/48; PULSE 72; TEMP 99.4
--- NOTE | 2021-03-13 22:25 | NUR ---
PT IS LAYING IN BED, STATES GENERALIZED CHRONIC PAIN. STATES SHE WASN'T SURE IF HAD BM OR JUST GAS. THIS RN CHECKED, DID NOT SEE ANY BM. PT ASSESSMENT COMPLETED, MEDICATIONS GIVEN. PT REPOSITIONED BEST COULD. SKIN TEAR ON BOTTOM COCCYX HAS MEFLEX DRESSING OVER IT.
[2021-03-14] VITALS (7 sets, daily range): BP systolic 149–168; BP diastolic 43–55; PULSE 65–73; TEMP 97.1–98.6
[2021-03-14 05:47] LABS: BASO % 0.5 % (0.0-2.0); EOS # 0.1 K/mm3 (0.0-0.7); EOS % 2.3 % (0.0-4.0); GRAN # 1.3 K/mm3 (1.4-6.5); GRAN % 59.7 % (42.2-75.2); LYMPH # 0.6 K/mm3 (1.2-3.4); LYMPH % 27.9 % (20.0-51.0); MEAN CELL VOLUME 97 fl (80.0-100.0); MEAN CORPUSCULAR HGB CONC 33 g/dl (33.0-37.0); MEAN PLATELET VOLUME 10.4 fl (7.4-10.4); MONO # 0.2 K/mm3 (0.1-0.6); MONO % 9.1 % (1.7-9.3); RED BLOOD COUNT 2.25 M/mm3 (4.10-5.30); REDCELL DISTRIBUTION WIDTH-CV 14.1 % (11.5-14.5)
[2021-03-14 05:52] LABS: HEMATOCRIT 21.9 % (37.0-47.0); HEMOGLOBIN 7.3 g/dl (12.5-16.0); MEAN CORPUSCULAR HEMOGLOBIN 32 pg (27-31)
[2021-03-14 05:54] LABS: PLATELET COUNT 47 K/mm3 (130-400)
--- NOTE | 2021-03-14 06:00 | NUR ---
PT HAD AN UNEVENTFUL NIGHT. PT SLEPT MOST OF NIGHT. PT REMAINED ON RA. DENIES N/V/D OR SOB. ALL NEEDS MET. CALL LIGHT IN REACH
[2021-03-14 06:09] LABS: ALBUMIN 1.5 gm/dL (3.4-4.8); BILIRUBIN,TOTAL 0.7 mg/dL (0.2-1.2); C-REACTIVE PROTEIN 4.22 mg/dL (0.00-0.50); CALCIUM 6.9 mg/dL (8.4-10.2); CREATININE, serum 1.97 mg/dL (0.57-1.11); MAGNESIUM 2.1 mg/dL (1.6-2.6); POTASSIUM 4.4 mmol/L (3.5-4.5); TOTAL PROTEIN 4.4 gm/dL (6.2-8.1)
--- NOTE | 2021-03-14 09:51 | NUR ---
PT RESTING IN BED. MORNING MEDICATIONS GIVEN. SHIFT ASSESSMENT COMPLETED. PT COMPLAINING ON MODERATE BACK PAIN, REQUESTING TYLENOL. DENIES FEELING SOB WHILE LAYING IN BED, CURRENTLY ON ROOM AIR. DENIES ANY OTHER NEEDS AT THIS TIME. WILL CONTINUE TO MONITOR.
--- NOTE | 2021-03-15 03:35 | NUR ---
Rested quietly throughout the shift mgr, able to make needs known, positioned to offload pressure areas, updated on plan of care, no c/o at this time. VS stable.
[2021-03-15 04:33] VITALS: BP 157/44; PULSE 65; TEMP 97.5
[2021-03-15 06:51] LABS: EOS % 1.9 % (0.0-4.0); GRAN # 1.3 K/mm3 (1.4-6.5); GRAN % 63.7 % (42.2-75.2); LYMPH # 0.5 K/mm3 (1.2-3.4); LYMPH % 22.9 % (20.0-51.0); MEAN CELL VOLUME 97 fl (80.0-100.0); MEAN CORPUSCULAR HGB CONC 34 g/dl (33.0-37.0); MEAN PLATELET VOLUME 9.9 fl (7.4-10.4); MONO # 0.2 K/mm3 (0.1-0.6); MONO % 10.5 % (1.7-9.3); RED BLOOD COUNT 2.32 M/mm3 (4.10-5.30)
[2021-03-15 06:55] LABS: HEMATOCRIT 22.5 % (37.0-47.0); HEMOGLOBIN 7.7 g/dl (12.5-16.0); MEAN CORPUSCULAR HEMOGLOBIN 33 pg (27-31)
[2021-03-15 06:56] LABS: PLATELET COUNT 47 K/mm3 (130-400)
[2021-03-15 07:07] LABS: ALBUMIN 1.5 gm/dL (3.4-4.8); CALCIUM 6.9 mg/dL (8.4-10.2); CREATININE, serum 1.91 mg/dL (0.57-1.11); MAGNESIUM 2.1 mg/dL (1.6-2.6); PHOSPHOROUS 3.2 mg/dL (2.3-4.7); POTASSIUM 4.4 mmol/L (3.5-4.5)
[2021-03-15 07:48] LABS: ALBUMIN 1.5 gm/dL (3.4-4.8); BILIRUBIN,TOTAL 0.7 mg/dL (0.2-1.2); C-REACTIVE PROTEIN 3.86 mg/dL (0.00-0.50); CALCIUM 6.9 mg/dL (8.4-10.2); CREATININE, serum 1.95 mg/dL (0.57-1.11); POTASSIUM 4.4 mmol/L (3.5-4.5); TOTAL PROTEIN 4.6 gm/dL (6.2-8.1)
[2021-03-15 08:43] VITALS: BP 169/45; PULSE 67; TEMP 97.6
--- NOTE | 2021-03-15 10:03 | NUR ---
PT RESTING IN BED. MORNING MEDICATIONS GIVEN. SHIFT ASSESSMENT COMPLETED. REPORTING PAIN TO BACK, LIDOCAINE PATCH APPLIED PER APR. PICC LINE FLUSHES AND HAS GOOD BLOOD RETURN. DENIES ANY OTHER NEEDS AT THIS TIME. WILL CONTINUE TO MONITOR.
[2021-03-15 12:36] VITALS: BP 148/42; PULSE 70; TEMP 97.6
[2021-03-15 17:04] VITALS: BP 154/46; PULSE 72; TEMP 98.6
[2021-03-15 19:25] VITALS: BP 163/44; PULSE 75; TEMP 98.4
[2021-03-15 23:58] VITALS: BP 151/40; PULSE 67; TEMP 98.7
[2021-03-16 04:03] VITALS: BP 166/54; PULSE 77; TEMP 98.8
--- NOTE | 2021-03-16 05:47 | NUR ---
Resting quietly, no c/o at this time, VS stable, hall draining per gravity to bag, uses call avendano appropriately, tolerating room air.
[2021-03-16 05:51] LABS: MEAN CELL VOLUME 97 fl (80.0-100.0); MEAN CORPUSCULAR HGB CONC 35 g/dl (33.0-37.0); MEAN PLATELET VOLUME 10.9 fl (7.4-10.4); REDCELL DISTRIBUTION WIDTH-CV 14.2 % (11.5-14.5)
[2021-03-16 05:57] LABS: HEMATOCRIT 20.3 % (37.0-47.0); MEAN CORPUSCULAR HEMOGLOBIN 33 pg (27-31)
[2021-03-16 06:00] LABS: PLATELET COUNT 41 K/mm3 (130-400)
--- NOTE | 2021-03-16 06:00 | NUR ---
Called Veronica Jones with critical level of platelets 41, no new orders at this time
[2021-03-16 06:05] LABS: CALCIUM 6.7 mg/dL (8.4-10.2); CREATININE, serum 1.9 mg/dL (0.57-1.11); POTASSIUM 4.3 mmol/L (3.5-4.5)
[2021-03-16 08:38] VITALS: BP 159/39; PULSE 73; TEMP 99.1
[2021-03-16 10:59] VITALS: BP 173/46; PULSE 76; TEMP 97.9
--- NOTE | 2021-03-16 16:30 | NUR ---
Clinical updates faxed to Angelia at [facility]. Patient will not be able to accept this patient until she is 10 day's post positive covid test.
[2021-03-16 16:47] VITALS: BP 143/44; PULSE 72; TEMP 98
--- NOTE | 2021-03-16 20:11 | NUR ---
Patient has had an uneventful day. VSS. Patient A&O. PRN medications given for back pain. Patient repositioned Q2. Patient on RA. Scheduled medcations given. Shift assessment performed. Patient denies any further needs at this time. Call light in reach. Fall percautions in place.
[2021-03-16 21:31] VITALS: BP 155/48; PULSE 70; TEMP 99.3
[2021-03-17] VITALS (10 sets, daily range): BP systolic 125–175; BP diastolic 38–52; PULSE 67–81; TEMP 97.8–99
--- NOTE | 2021-03-17 03:45 | NUR ---
Patient rested quietly throughout warehouse shift supervisor, VS stable, turn q 2 hours to off load pressure, tolerating room air w/o issue, awaiting placement.
[2021-03-17 06:41] LABS: MEAN CELL VOLUME 101 fl (80.0-100.0); MEAN CORPUSCULAR HGB CONC 34 g/dl (33.0-37.0); MEAN PLATELET VOLUME 9.5 fl (7.4-10.4); RED BLOOD COUNT 1.99 M/mm3 (4.10-5.30); REDCELL DISTRIBUTION WIDTH-CV 14.5 % (11.5-14.5)
[2021-03-17 06:51] LABS: HEMOGLOBIN 6.7 g/dl (12.5-16.0); MEAN CORPUSCULAR HEMOGLOBIN 34 pg (27-31); PLATELET COUNT 28 K/mm3 (130-400)
[2021-03-17 06:55] LABS: CALCIUM 6.7 mg/dL (8.4-10.2); CREATININE, serum 1.99 mg/dL (0.57-1.11); POTASSIUM 4.5 mmol/L (3.5-4.5)
--- NOTE | 2021-03-17 11:00 | NUR ---
Assessment completed, alert/oriented, vital signs stable, no resp.difficulty noted, lungs CTA/ diminished and distant as patient is obese, reports moderate back pain that is worse everytime "we make her move", she is unable to physically do anything for herself at this time, PT/OT working with her, excoriation and redness under panis and skin fold, using barrier methods to treat, hall in place and patent, discharge planning in place
--- NOTE | 2021-03-17 16:30 | NUR ---
Per Angelia at [facility], they do not have a Covid SNF unit open and cannot take this patient until she is 10 day's post positive covid test.
[2021-03-18 03:12] VITALS: BP 153/43; PULSE 73; TEMP 97.9
--- NOTE | 2021-03-18 07:30 | NUR ---
RN PULLED BLOOD OFF PATIENT'S PICC FOR LAB DRAW. UNABLE TO FLUSH BLUE SIDE OF PICC. RED SIDE WAS ABLE TO BE FLUSHED/DRAW BACK BUT MET SIGNIFICANT RESISTANCE WITH BOTH. LENS AND FRAMES PRESCRIPTION CLERK MADE AWARE.
[2021-03-18 07:44] LABS: MEAN CORPUSCULAR HGB CONC 35 g/dl (33.0-37.0); RED BLOOD COUNT 2.59 M/mm3 (4.10-5.30); REDCELL DISTRIBUTION WIDTH-CV 16.5 % (11.5-14.5)
[2021-03-18 07:45] LABS: HEMATOCRIT 23.8 % (37.0-47.0); HEMOGLOBIN 8.3 g/dl (12.5-16.0); MEAN CELL VOLUME 92 fl (80.0-100.0); MEAN CORPUSCULAR HEMOGLOBIN 32 pg (27-31)
[2021-03-18 07:47] LABS: PLATELET COUNT 32 K/mm3 (130-400)
--- NOTE | 2021-03-18 07:50 | NUR ---
PATIENT'S PLT 32. CRITICAL CALLED TO [facility]ER[facility].
[2021-03-18 07:57] LABS: CALCIUM 6.7 mg/dL (8.4-10.2); CREATININE, serum 2.19 mg/dL (0.57-1.11); POTASSIUM 4.5 mmol/L (3.5-4.5)
[2021-03-18 09:00] VITALS: BP 176/46; PULSE 71; TEMP 97.4
[2021-03-18 13:51] VITALS: BP 139/56; PULSE 71; TEMP 97.8
--- NOTE | 2021-03-18 16:10 | NUR ---
contacted by patient's primary care nurse. Both lumens are hard to flush. advised to obtain an order for cath derrick and instril a dose in each lumen.
--- NOTE | 2021-03-18 16:15 | NUR ---
TATE faxed updates to Kamran at [facility].
[2021-03-18 17:06] VITALS: BP 141/40; PULSE 72; TEMP 97.3
[2021-03-18 19:24] VITALS: BP 139/43; PULSE 77; TEMP 98.7
[2021-03-19] VITALS (7 sets, daily range): BP systolic 124–152; BP diastolic 38–45; PULSE 61–79; TEMP 97.2–98
--- NOTE | 2021-03-19 03:05 | NUR ---
Patient rested quietly throughout the shift, repositioned often, BLE elevated on pillows, offloading pressure areas, VS stable, tolerating room air w/o issue, no further c/o at this time, updated on plan of care. awaiting placement.
[2021-03-19 07:10] LABS: CALCIUM 6.5 mg/dL (8.4-10.2); CREATININE, serum 2.19 mg/dL (0.57-1.11); POTASSIUM 4.4 mmol/L (3.5-4.5)
[2021-03-19 07:35] LABS: MEAN CORPUSCULAR HGB CONC 33 g/dl (33.0-37.0); MEAN PLATELET VOLUME 10.8 fl (7.4-10.4); RED BLOOD COUNT 2.35 M/mm3 (4.10-5.30); REDCELL DISTRIBUTION WIDTH-CV 16.6 % (11.5-14.5)
[2021-03-19 07:53] LABS: HEMATOCRIT 22.8 % (37.0-47.0); HEMOGLOBIN 7.6 g/dl (12.5-16.0); MEAN CELL VOLUME 97 fl (80.0-100.0); MEAN CORPUSCULAR HEMOGLOBIN 32 pg (27-31)
[2021-03-19 07:55] LABS: PLATELET COUNT 31 K/mm3 (130-400)
--- NOTE | 2021-03-19 08:18 | NUR ---
CRITICAL LAB, PLT. 31 CALLED TO CURTIS SEPULVEDA.
--- NOTE | 2021-03-19 22:28 | NUR ---
Patient assessed around 2044. Alert and oriented, and able to make needs known. Reported pain to bottom. Weight shifted in bed to help, but will not allow staff to reposition patient onto either side. Patient has ulcer to bottom, mepilex in place. Education provided on needing to reposition, but continues to decline to reposition. Breat, abdominal, and groin folds cleaned. Excoriation with small open areas. Cloth put in areas to help decrease moisture. In bed with call light within reach.
[2021-03-20 04:44] VITALS: BP 126/37; PULSE 67; TEMP 97.3
--- NOTE | 2021-03-20 05:31 | NUR ---
Patient has been resting in bed. Allowed staff to reposition onto left side. Voices no questions, needs, or concerns at this time. In bed with call light within reach.
[2021-03-20 08:44] VITALS: BP 137/45; PULSE 71; TEMP 98.2
--- NOTE | 2021-03-20 11:12 | NUR ---
Per Angelia at [facility], they will not be able to accept this patient today due to an available bariatric bed. Angelia assures that if she is able to move people around or a bed becomes available she will let me know. Atul at [facility] contacted and sent updates on this patient. He is unsure if they have a bariatric bed but is going to look into it.
[2021-03-20 11:31] VITALS: BP 125/40; PULSE 70; TEMP 98
[2021-03-20 16:00] VITALS: BP 129/43; PULSE 69; TEMP 97.8
--- NOTE | 2021-03-20 17:01 | NUR ---
Pending review from [facility]. Referral sent to [facility] and they cannot accept as this patient is no skillable. Discharge plan: Not placed
[2021-03-20 20:06] VITALS: BP 120/35; PULSE 71; TEMP 98.5
--- NOTE | 2021-03-20 22:22 | NUR ---
Patient assessed around 2014. Alert and oriented, and able to make needs known. Repositioned off bottom. Denies pain and discomfort. Voices no questions, needs, or concerns at this time. In bed with call light within reach.
[2021-03-21] VITALS (7 sets, daily range): BP systolic 111–124; BP diastolic 27–34; PULSE 64–71; TEMP 97.6–98.7
--- NOTE | 2021-03-21 05:13 | NUR ---
Patient has been in bed with call light within reach. Denies pain and discomfort.
--- NOTE | 2021-03-21 07:30 | NUR ---
Report received from AGA Lyon. PT in bed resting, will continue to monitor.
--- NOTE | 2021-03-21 11:28 | NUR ---
SW contacted to reach out to [facility] in regards to patient transfer. [facility] staff stated they were unable to accept due to clinical needs as well as room availablity. SW also contacted [facility] to inquire about patient transfer. [facility] staff stated they were unable to accept patient at this time. SW will continue to research facilities for referral.
--- NOTE | 2021-03-21 11:37 | NUR ---
Assessment charted. Pt in bed resting, c/o severe pain to back, PRN tylenol provided per request. Pt has stage 3 pressure ulcer to sacrem that is covered with mepilex, turning per request, pt does not assist with much, asking for pillows to be readjusted and fluffed, repositioned 3 times this morning for comfort. PICC to [facility]. Huynh drainig clear yellow urine. Interdry in pannus nad under breasts to help with excoriation. Heel floaters in place, pt refusing air mattress, egg crate mattress, turning per request. Will continue to monitor.
--- NOTE | 2021-03-21 15:47 | NUR ---
SW sent additional referral to [facility] to review. Will inform on coming SW about [facility] and [facility] being unable to assist patient. SW informed that patient is not longer in isolation. SW will continue to follow.
--- NOTE | 2021-03-21 18:45 | NUR ---
Repositioned pt often over shift for comfort from side to side to offset sacrem pressure ulcers. PRN pain meds provided and called daughter and left VM to provide update. Resting in bed, denies needs, [facility] who willr esume care.
--- NOTE | 2021-03-21 22:27 | NUR ---
ASSESSMENT COMPLETE FOR THIS SHIFT. PT RESTING IN BED WATCHING TV. PT DENIES PAIN, PALPITATIONS, SOB, N,V,D OR DIZZINESS AT THIS TIME. PT LEGS WEEPY BILATERALLY, UNABLE TO PLACE SCD AT THIS TIME, TOO UNCOMFORTABLE FOR PT. PT EXPRESSED NO OTHER NEEDS AT THIS TIME. CALL LIGHT WITHIN REACH.
[2021-03-22 03:27] VITALS: BP 104/30; PULSE 65; TEMP 98.3
[2021-03-22 06:47] LABS: MEAN CELL VOLUME 98 fl (80.0-100.0); MEAN CORPUSCULAR HGB CONC 33 g/dl (33.0-37.0); MEAN PLATELET VOLUME 10.3 fl (7.4-10.4); REDCELL DISTRIBUTION WIDTH-CV 16.1 % (11.5-14.5)
[2021-03-22 06:59] LABS: ALBUMIN 1.2 gm/dL (3.4-4.8); BILIRUBIN,TOTAL 1.1 mg/dL (0.2-1.2); CALCIUM 6.4 mg/dL (8.4-10.2); CREATININE, serum 2.37 mg/dL (0.57-1.11); POTASSIUM 4.5 mmol/L (3.5-4.5)
[2021-03-22 07:01] LABS: HEMATOCRIT 20.5 % (37.0-47.0); HEMOGLOBIN 6.8 g/dl (12.5-16.0); MEAN CORPUSCULAR HEMOGLOBIN 32 pg (27-31); PLATELET COUNT 37 K/mm3 (130-400)
[2021-03-22 07:26] VITALS: BP 107/31; PULSE 63; TEMP 98
[2021-03-22 11:23] VITALS: BP 113/27; PULSE 69; TEMP 97.7
[2021-03-22 15:45] VITALS: BP 108/48; PULSE 68; TEMP 97.5
[2021-03-22 19:30] VITALS: BP 125/34; PULSE 66; TEMP 97.7
[2021-03-22 23:31] VITALS: BP 113/29; PULSE 67; TEMP 98.1
[2021-03-23] VITALS (7 sets, daily range): BP systolic 115–124; BP diastolic 27–33; PULSE 65–71; TEMP 97.9–98.4
--- NOTE | 2021-03-23 03:11 | NUR ---
ASSESSMENT COMPLETE FOR THIS SHIFT. PT RESTING IN BED WATCHING TV. PT DENIES PAIN, PALPITATIONS, N,V,D, SOB OR DIZZINESS. PT UNWILLING TO WEAR SCD'S DUE TO HER LEGS HURTING. PT ALSO, DID NOT WANT HER BOIWE CATHETER OUT, DUE TO HER FEELING THAT SHE CAN NOT SUPPORT HER WEIGHT WHEN SHE STANDS. PT ALSO STATES THAT SHE FEELS LIKE SHE CAN NOT EVEN GET TO THE EDGE OF THE BED TO USE THE BEDSIDE COMMODE AND SHE SAYS THE BED HUFF HURTS TOO MUCH. I SPOKE WITH THE HOSPITALIST (CURTIS NGUYỄN), ABOUT THE MATTER. CURTIS NGUYỄN, SAID TO KEEP IT IN TONIGHT AND WE COULD WORK OUT A PLAN FOR HER IN THE MORNING. PT EXPRESSED NO OTHER NEEDS AT THIS TIME. CALL LIGHT WITHIN REACH.
[2021-03-23 06:31] LABS: MEAN CELL VOLUME 97 fl (80.0-100.0); MEAN CORPUSCULAR HGB CONC 34 g/dl (33.0-37.0); MEAN PLATELET VOLUME 10.2 fl (7.4-10.4)
[2021-03-23 06:44] LABS: HEMATOCRIT 20.4 % (37.0-47.0); MEAN CORPUSCULAR HEMOGLOBIN 33 pg (27-31)
[2021-03-23 06:46] LABS: PLATELET COUNT 41 K/mm3 (130-400)
[2021-03-23 06:51] LABS: CALCIUM 6.5 mg/dL (8.4-10.2); CREATININE, serum 2.43 mg/dL (0.57-1.11); POTASSIUM 4.5 mmol/L (3.5-4.5)
--- NOTE | 2021-03-23 08:04 | NUR ---
PT IS LAYING IN BED AWAKE AT THIS TIME. HAS C/O BOTTOM STARTING TO HURT. WILL REPOSITION TO HELP WITH THAT PAIN. ORDERED THE PATIENT SOME OATMEAL WITH BROWN SUGAR AND MILK PER THE PATIENTS REQUEST.
--- NOTE | 2021-03-23 15:30 | NUR ---
Pt refused to have hall removed. She states that she is concerned that she will be wet and that her skin will get worse and burn.
--- NOTE | 2021-03-23 15:59 | NUR ---
Director Of Accreditation contacted Carlee at [facility] and left a message. SW then contacted patient's daughter, Saray to update on referrals. SW advised Saray that multiple referrals would be sent to the surrounding area in order to secure placement. Saray requested referrals include [facility] and [facility]. Saray verbalized understanding when TATE explained that several referrals would be sent out. TATE faxed referrals to [facility], [facility], [facility], [facility], [facility], and [place]. Discharge Plan: Pending referrals listed above
--- NOTE | 2021-03-23 16:23 | NUR ---
[facility] does not have a female bed available at this time.
--- NOTE | 2021-03-23 16:31 | NUR ---
Carlee at [facility] advised that tentatively they will not be able to accept admissions until next week due to staffing. Carlee will contact if this changes.
--- NOTE | 2021-03-23 17:13 | NUR ---
PT HAS HAD UNEVENTFUL SHIFT. WE HAVE TURNED HER Q2H, AND THE PATIENT REFUSES TO BE CLEANED DESPITE ODOR COMING FROM PANIS FOLDS. TOOK MEDICATIONS PRESCRIBED. DID NEED ULTRAM FOR PAIN THAT SHE STATES IS A 10/10. NO OTHER CONCERNS.
--- NOTE | 2021-03-23 21:07 | NUR ---
B/P RETAKEN AT THIS TIME - CALL TO JAIRO GUO- NOTIFIED OF VITAL SIGNS, NO NEW ORDERS AT THIS TIME
--- NOTE | 2021-03-23 21:12 | NUR ---
Patient stable, no c/o pain, denies shortness of breath, will continue to monitor.
[2021-03-24] VITALS (7 sets, daily range): BP systolic 80–157; BP diastolic 34–54; PULSE 63–68; TEMP 97.5–98.1
--- NOTE | 2021-03-24 05:11 | NUR ---
Rested quietly throughout the night, no s/s of acute distress, updated on plan of care, VS stable, will continue to monitor.
--- NOTE | 2021-03-24 16:04 | NUR ---
[facility], [facility], and [facility] all declined referral. TATE followed up with [facility] and [facility]. Both continue to review referral. TATE also spoke with Nova at [facility] who advised she would submit for authorization either this afternoon or tomorrow morning. TATE spoke with patient's daughter, Saray to provide update. Saray is hopeful [facility] will secure authorization. Saray advised that patient has not walked in about eight years, however prior to hospitalization was transferring in and out of her wheelchair with no assistance. Saray advised patient was able to navigate her home independently. Saray would prepare meals for patient and patient was able to heat them up in the microwave. Saray advised patient had Medicaid about 9 years ago when she was in the assisted but once she discharged to her apartment, she made too much money to qualify. Saray states the last time they reapplied was about four years ago. Saray advised patient does not own her own home. TATE explained to Saray that applying for Medicaid may be necessary for placement. Discharge Plan: Pending placement acceptance
--- NOTE | 2021-03-24 19:29 | NUR ---
The patient has had an uneventful day. Today we have discussed with the patient the importance of removing the hall catheter. The patient refused on the first attempt to have it removed. Contacted the provider regarding her refusal. CURTIS Carolina came to bedside with this RN to discuss the infection risk. Pt understood, and acknowledge the need very tearfully. This RN returned to take out the hall. The patient was tearful, and this RN removed the hall, performed thorough perineal care, then placed a purewick to keep the patient dry. This patient has been unable to move on her own, requires max assist, and states that she is in lots of pain. While cleaning the patient, this RN noticed that the skin has begun to slough off from under the right side of the panis. The patient also has 3-4 open sores on the left side of her panis. The [facility] a bed is available.
[2021-03-25 04:19] VITALS: BP 112/32; PULSE 68; TEMP 98.2
--- NOTE | 2021-03-25 04:29 | NUR ---
PT HAS HAD NO OUTPUT POST DC'D BOWIE, BLADDER SCAN RESULTS LESS THAN 200ML OF URINE. VSS. PUREWICK IN PLACE. THIS NURSE WILL CONTINUE TO MONITOR.
[2021-03-25 08:04] VITALS: BP 107/39; PULSE 71; TEMP 98.1
[2021-03-25 11:48] VITALS: BP 127/34; PULSE 75; TEMP 98.4
[2021-03-25] MEDS ORDERED: SYNTHROID0.075 MG/T PO (11:59)
[2021-03-25] MEDS ORDERED: LASIX 40MG TABL40 MG PO (12:00)
[2021-03-25] MEDS ORDERED: ACCUPRIL5MGTAB PO (12:01)
[2021-03-25] MEDS ORDERED: CRESTOR20 MG PO (12:01)
[2021-03-25] MEDS ORDERED: ATARAX50 MG PO (12:03)
[2021-03-25] MEDS ORDERED: CALCITRIOL PO (12:04)
[2021-03-25] MEDS ORDERED: REGLAN 5MG T5 MG/TAB PO (12:05)
[2021-03-25] MEDS ORDERED: ALDACTONE 25MG25 M1 PO (12:06)
[2021-03-25 15:38] VITALS: BP 109/35; PULSE 66; TEMP 97.4
--- NOTE | 2021-03-25 17:02 | NUR ---
Network Liaison spoke with Nova at [facility] and they still do not have an response from [employer] at this time for authorization.
--- NOTE | 2021-03-25 18:42 | NUR ---
UNEVENTFUL SHIFT FOR THIS PATIENT. REPORT GIVEN TO AGA GODWIN
--- NOTE | 2021-03-25 20:00 | NUR ---
Bedside shift report received, assumed care for shift nurse manager. A&Ox4. Denies pain/nausea/shortness of breath. VS remain stable. Has not voided yet-bladder scan reveals 200mls-purewick is in place. Encouraged to use IS but patient very dependent of staff and not willing to do things for self. Plan of care discussed for this shift to include meds/turning/calling for questions/concerns. Call light in reach. Will monitor.
[2021-03-25 20:35] VITALS: BP 117/35; PULSE 70; TEMP 97.7
[2021-03-25 23:26] VITALS: BP 121/36; PULSE 73; TEMP 97.8
--- NOTE | 2021-03-25 23:30 | NUR ---
Called with c/o pain to back-rating pain 6/10 on pain scale-described as throbbing. Tramadol given per dr order. Will monitor.
[2021-03-26] VITALS (11 sets, daily range): BP systolic 94–124; BP diastolic 25–56; PULSE 63–70; TEMP 97.6–98.3
--- NOTE | 2021-03-26 04:23 | NUR ---
Bladder scan completed at this time due to 0 output since hall being DCd. Scan reveals 221mls. Will continue to monitor.
[2021-03-26 05:50] LABS: MEAN CELL VOLUME 96 fl (80.0-100.0); MEAN CORPUSCULAR HGB CONC 34 g/dl (33.0-37.0); MEAN PLATELET VOLUME 10.4 fl (7.4-10.4); PLATELET COUNT 52 K/mm3 (130-400); RED BLOOD COUNT 1.95 M/mm3 (4.10-5.30); REDCELL DISTRIBUTION WIDTH-CV 16.9 % (11.5-14.5)
[2021-03-26 05:53] LABS: HEMOGLOBIN 6.4 g/dl (12.5-16.0); MEAN CORPUSCULAR HEMOGLOBIN 33 pg (27-31)
[2021-03-26 05:54] LABS: HEMATOCRIT 18.8 % (37.0-47.0)
--- NOTE | 2021-03-26 05:59 | NUR ---
JULIET Ambrosio-Hospitalist notified of critical labs. New orders received.
[2021-03-26 06:02] LABS: CALCIUM 6.7 mg/dL (8.4-10.2); CREATININE, serum 2.65 mg/dL (0.57-1.11); POTASSIUM 4.6 mmol/L (3.5-4.5)
--- NOTE | 2021-03-26 14:37 | NUR ---
Met with patient at bedside. She states she wants to get stronger. Her goal is to be able to transfer herself from bed to commode. I discussed rehab facilities and possible long-term care in some fashion down the road. Eve understands she has a long-road ahead of her but states she is willing to try.
--- NOTE | 2021-03-26 16:08 | NUR ---
Department Secretary received a message from [facility] that [facility] has declined acute rehab and advised patient's needs can be met at SNF. SW provided update to Hospitalist who did not feel a peer to peer was necessary. SW faxed additional referrals to [facility], [facility], and [facility]. SW left messages to follow up with [facility] and [facility]. SW met with patient and provided the above update. SW advised patient she would need to consider applying for Medicaid as she does not have a secondary. SW also advised patient that she needs to work with therapy in order to secure rehab placement. Patient verbalized understanding and was agreeable to apply for Medicaid. SW consulted [facility] with financial counseling. SW advised patient that referrals have been sent to facilities that are upwards of two hours away. Patient verbalized understanding. SW provided update to Saray and advised that referrals are being sent to facilites upwards of two hours away. Saray verbalized understanding and is agreeable to placement, even if it is far away.
--- NOTE | 2021-03-26 19:13 | NUR ---
Patient has done well today. Repositioned multiple times today by this RN and parking meter attendant. Blood transfusion completed w/o any s/s of reaction. Patient has remained in bed all day. Purewick in place draining urine.
[2021-03-26 21:39] LABS: HEMATOCRIT 22.7 % (37.0-47.0); HEMOGLOBIN 7.7 g/dl (12.5-16.0)
--- NOTE | 2021-03-26 23:33 | NUR ---
Patient assessed around 1914. Given PRN Ultram for pain as requested. Declined repositioning at that time. Voices no questions, needs, or concerns. In bed with call light within reach.
[2021-03-27 00:04] VITALS: BP 117/40; PULSE 65; TEMP 98
[2021-03-27 04:38] VITALS: BP 117/35; PULSE 65; TEMP 98.4
--- NOTE | 2021-03-27 05:46 | NUR ---
Patient only allowed repositioning twice this shift. Had been given PRN Ultram once this shift for pain. Voices no questions, needs, or concerns at this time. In bed with call light within reach.
[2021-03-27 07:39] VITALS: BP 103/51; PULSE 66; TEMP 97.5
--- NOTE | 2021-03-27 08:02 | NUR ---
Patient laying in bed upon entering the room. Rates pain a 5/10 in her bottom/back. Nightshift RN reported that patient refused to be fully repositioned all night. This RN will encourage repositioning and for the patient to work w/ PT. Explained to patient that the goal is for the patient to at least sit on the edge of the bed for a couple of minutes. Also will continue to encourage the patient to eat today, breakfast is at the bedside and patient stated she wanted to wait a bit before eating.
[2021-03-27 08:11] LABS: HEMATOCRIT 22.2 % (37.0-47.0); HEMOGLOBIN 7.6 g/dl (12.5-16.0)
[2021-03-27 08:21] LABS: CALCIUM 6.5 mg/dL (8.4-10.2); CREATININE, serum 2.67 mg/dL (0.57-1.11)
--- NOTE | 2021-03-27 10:38 | NUR ---
Visited with patient this AM. She was happy to report she worked with PT and ate oatmeal. Will continue to encourage her to attempt things herself and complete exercises per PT.
--- NOTE | 2021-03-27 11:22 | NUR ---
Patient sat up on the edge of the bed w/ the assistance of PT and this RN. Patient did well, experienced some pain. Patient repositioned onto her left side to alleviate pressure on her bottom.
[2021-03-27 11:31] VITALS: BP 108/35; PULSE 67; TEMP 97.4
--- NOTE | 2021-03-27 12:55 | NUR ---
Clinical updates faxed to both Marj and Benjamin Mcmahan: *DON still needs to review *Need JERILYN application completed (Email sent to our financial counselor asking if this could be completed today) *Care assessment completed. *Will call once NOAH reviews Benjamin Rushing: *Insurance auth pending *Will need care assessment completed *CAN ACCEPT if insurance approves (Will call once business office hears)
[2021-03-27 15:49] VITALS: BP 113/40; PULSE 70; TEMP 97.8
--- NOTE | 2021-03-27 18:06 | NUR ---
Patient's daughter is currently here visiting, update given. Patient has been very pleasant today and in a good mood. Has not expressed any complaints or concerns.
--- NOTE | 2021-03-27 19:18 | NUR ---
Patient assessed at this time. Complained of pain to back and buttock. Given PRN Ultram and scheduled Flexeril per orders, and repositioned. PICC to RUE. Denies SOB and dyspnea. On room air. HRR. BS hypoactive x 4. Took scheduled medications, but continues to refuse suppository. Purewick external female catheter in place, bandar, clear urine. Voices no questions, needs, or concerns at this time. In bed with call light within reach.
[2021-03-27 19:30] VITALS: BP 128/36; PULSE 74; TEMP 97.7
[2021-03-28] VITALS (7 sets, daily range): BP systolic 112–133; BP diastolic 36–74; PULSE 70–87; TEMP 97.4–98.4
--- NOTE | 2021-03-28 05:29 | NUR ---
Received PRN Ultram once this shift. Has voiced no further questions, needs, or concerns this shift. In bed with call light within reach.
--- NOTE | 2021-03-28 08:00 | NUR ---
Patient requesting to sit on the side of bed, nursing staff x2 assisted with ambulation. A&Ox4. IV CDI. Reports pain all over, pain medication requested. Purewick in place. No further needs expressed. Call light within reach
[2021-03-28 08:13] LABS: BASO % 0.7 % (0.0-2.0); EOS # 0.2 K/mm3 (0.0-0.7); EOS % 4.2 % (0.0-4.0); GRAN # 2.3 K/mm3 (1.4-6.5); GRAN % 56.5 % (42.2-75.2); LYMPH # 1.2 K/mm3 (1.2-3.4); LYMPH % 29.9 % (20.0-51.0); MEAN CORPUSCULAR HGB CONC 34 g/dl (33.0-37.0); MEAN PLATELET VOLUME 8.9 fl (7.4-10.4); MONO # 0.3 K/mm3 (0.1-0.6); MONO % 8.2 % (1.7-9.3); PLATELET COUNT 83 K/mm3 (130-400); RED BLOOD COUNT 2.77 M/mm3 (4.10-5.30); REDCELL DISTRIBUTION WIDTH-CV 18.8 % (11.5-14.5)
[2021-03-28 08:26] LABS: HEMATOCRIT 25.2 % (37.0-47.0); HEMOGLOBIN 8.5 g/dl (12.5-16.0); MEAN CORPUSCULAR HEMOGLOBIN 31 pg (27-31)
[2021-03-28 08:27] LABS: MEAN CELL VOLUME 91 fl (80.0-100.0)
[2021-03-28 08:33] LABS: CALCIUM 6.9 mg/dL (8.4-10.2); CREATININE, serum 2.66 mg/dL (0.57-1.11); POTASSIUM 4.9 mmol/L (3.5-4.5)
--- NOTE | 2021-03-28 11:00 | NUR ---
Patient had a wirnessed assisted fall while working with PT. PT assisting with transfering the patient to the recliner and the recliner and then recliner moved and that patient was unable to sit on the recliner. Gait belt used and 2 nursing staff and PT in the room. Patient was assisted back to the bed with a chair lift with 2 PT's assisting. Doctor notified and aware. Patient repostiond for comfort. Call light within reach
--- NOTE | 2021-03-28 17:31 | NUR ---
Patient resting in bed, has been resting better since a change in pain medication. Worked with PT and had an assisted fall. Patient did also get up on the side of the bed with nursing staff. A&Ox3. VSS. IV CDI. Patient repositioned for comfort. No further needs expressed. Call light within reach
--- NOTE | 2021-03-28 19:35 | NUR ---
Called to patients room, states she has chest pain in the center of chest 11/30- will call Veronica ACEVEDO for orders, VSS
--- NOTE | 2021-03-28 20:15 | NUR ---
EKG done, Troponin drawn- pt states she has alot of gas pains at times- feels "like that" ,, states the pain has subsided now-- will give the Pepcid and Tums that were ordered by Veronica ACEVEDO- VSS,, Veronica ACEVEDO aware of results of troponin and EKG.
[2021-03-29] VITALS (11 sets, daily range): BP systolic 91–124; BP diastolic 40–91; PULSE 67–75; TEMP 97.5–98.4
--- NOTE | 2021-03-29 05:47 | NUR ---
Quiet night- [place] was given just once at the start of shift-has been sleeping, VSS, repositioned during the night -
[2021-03-29 06:58] LABS: ALBUMIN 1.2 gm/dL (3.4-4.8); CALCIUM 6.8 mg/dL (8.4-10.2); CREATININE, serum 2.54 mg/dL (0.57-1.11); MAGNESIUM 2.1 mg/dL (1.6-2.6); PHOSPHOROUS 3.3 mg/dL (2.3-4.7)
[2021-03-29 07:14] LABS: EOS # 0.1 K/mm3 (0.0-0.7); EOS % 4.9 % (0.0-4.0); GRAN # 1.2 K/mm3 (1.4-6.5); GRAN % 59.2 % (42.2-75.2); HEMATOCRIT 19.5 % (37.0-47.0); LYMPH # 0.5 K/mm3 (1.2-3.4); LYMPH % 25.2 % (20.0-51.0); MEAN CELL VOLUME 94 fl (80.0-100.0); MEAN CORPUSCULAR HEMOGLOBIN 31 pg (27-31); MEAN CORPUSCULAR HGB CONC 33 g/dl (33.0-37.0); MEAN PLATELET VOLUME 9.9 fl (7.4-10.4); MONO # 0.2 K/mm3 (0.1-0.6); MONO % 9.2 % (1.7-9.3); PLATELET COUNT 51 K/mm3 (130-400); RED BLOOD COUNT 2.07 M/mm3 (4.10-5.30)
[2021-03-29 07:15] LABS: HEMOGLOBIN 6.5 g/dl (12.5-16.0)
--- NOTE | 2021-03-29 08:00 | NUR ---
Patient laying in bed, sleeping, but easily awakened. A&Ox4. VSS. IV CDI. Denies pain and discomfort. Nurse placed an order for breakfast. Purewick in place. Heels floated. No further needs expressed. Call light within reach
--- NOTE | 2021-03-29 12:18 | NUR ---
Blood transfusion started. VSS. IV CDI. Patient tolerating well. VS being monitored. No further needs expressed. Call light within reach
--- NOTE | 2021-03-29 12:32 | NUR ---
Nurse at the bedside for first 15 minutes. Patient tolerating blood transfusion. VSS. IV CDI. Denies and pain or discomfort. Will continue to monitor VS and transfusion. No further needs expressed. Call light within reach
--- NOTE | 2021-03-29 14:20 | NUR ---
Blood transfusion complete. Patient tolerated well. VSS. IV CDI. No further needs expressed. Call light within reach
--- NOTE | 2021-03-29 17:41 | NUR ---
Patient rested in bed most of the day. Daughter came to visit the patient. Patient received a unit of blood and tolerated well. A&Ox4. VSS. IV CDI. Complaints of pain in buttucks. Pain medication given when requested. No further needs expressed. Call light within reach
--- NOTE | 2021-03-29 21:30 | NUR ---
Patient resting in bed, alert and oriented x 4, VSS, reports pain in her back but not in the bottom. Pure wick in place. Assessment completed, medications provided. Dressing changed over his coccys. No other needs at this time. Call light within reach.
[2021-03-30] VITALS (7 sets, daily range): BP systolic 101–136; BP diastolic 34–92; PULSE 64–75; TEMP 97.7–98.2
--- NOTE | 2021-03-30 06:23 | NUR ---
Patient has had a calm night. She was resting for intervals. She did not asked for pain medications. Assisted to be repositioned. No major issues along the night. Report will be given to day RN.
[2021-03-30 06:54] LABS: BASO % 1.4 % (0.0-2.0); EOS # 0.1 K/mm3 (0.0-0.7); EOS % 5.1 % (0.0-4.0); GRAN # 1.3 K/mm3 (1.4-6.5); GRAN % 58.1 % (42.2-75.2); LYMPH # 0.6 K/mm3 (1.2-3.4); LYMPH % 25.6 % (20.0-51.0); MEAN CELL VOLUME 91 fl (80.0-100.0); MEAN CORPUSCULAR HGB CONC 33 g/dl (33.0-37.0); MEAN PLATELET VOLUME 8.8 fl (7.4-10.4); MONO # 0.2 K/mm3 (0.1-0.6); MONO % 9.3 % (1.7-9.3); RED BLOOD COUNT 2.41 M/mm3 (4.10-5.30); REDCELL DISTRIBUTION WIDTH-CV 19.3 % (11.5-14.5)
[2021-03-30 07:01] LABS: HEMOGLOBIN 7.3 g/dl (12.5-16.0); MEAN CORPUSCULAR HEMOGLOBIN 30 pg (27-31)
[2021-03-30 07:03] LABS: PLATELET COUNT 49 K/mm3 (130-400)
[2021-03-30 07:11] LABS: ALBUMIN 1.1 gm/dL (3.4-4.8); CALCIUM 6.7 mg/dL (8.4-10.2); CREATININE, serum 2.52 mg/dL (0.57-1.11); MAGNESIUM 2.1 mg/dL (1.6-2.6); PHOSPHOROUS 3.3 mg/dL (2.3-4.7); POTASSIUM 5.1 mmol/L (3.5-4.5)
--- NOTE | 2021-03-30 11:43 | NUR ---
PT LAYING IN BED. MORNING MEDICATIONS GIVEN. SHIFT ASSESSMENT COMPLETED. PT COMPLAINING OF PAIN TO HER BOTTOM AND BACK. CONTINUING TO MONITOR.
--- NOTE | 2021-03-30 16:07 | NUR ---
Spacecraft Systems Engineer collaborated with Rut at [facility] who advised they are able to accept but need to secure a bariatric bed for patient and also will are waiting to hear back from [employer] on how many days they will approve. TATE was advised they are aware of covid waivers, however due to a history of non-payment from [employer], they will require to hear back from [employer] on authorization before accepting patient. TATE completed CARE Assessment for patient and faxed CARE to [facility]. TATE also placed CARE on chart and provided copy to patient. TATE confirmed with Eunice Financial Counselor that Medicaid application was submitted. Discharge Plan: [facility], pending [employer] authorization.
--- NOTE | 2021-03-30 20:00 | NUR ---
Patient is laying in bed, alert and oriented x 4. States constant pain in her back and bottom. Pt has had a couple ob BM, hygiene provided. Pure wick in place. Assessment completed, medicatios provided. No further needs at this time. Call light within reach.
[2021-03-31 00:40] VITALS: BP 111/37; PULSE 66; TEMP 98.2
[2021-03-31 04:33] VITALS: BP 126/35; PULSE 71; TEMP 98.6
--- NOTE | 2021-03-31 07:05 | NUR ---
Pt was sleeping most of the night. Right now after trying to have a BM, could not get the right position and complained about pain. Laona provided. Report given to day shift nurse.
[2021-03-31 07:22] VITALS: BP 113/36; PULSE 70; TEMP 98.3
--- NOTE | 2021-03-31 08:27 | NUR ---
PT RESTING IN BED, REPOSITIONED. SHIFT ASSESSMENT COMPLETED. MORNING MEDICATIONS GIVEN. REPORTS PAIN OF 7/10, MEDICATIONS GIVEN PER MAR. DENIES ANY OTHER NEEDS AT THIS TIME.
[2021-03-31 11:25] VITALS: BP 116/82; PULSE 67; TEMP 98.4
[2021-03-31 16:00] VITALS: BP 122/30; PULSE 71; TEMP 98.3
--- NOTE | 2021-03-31 16:18 | NUR ---
Inner [employer]ameter [employer] contacted Adrián Garcia) to follow up on authorization. TATE was advised that authorization was approved for four days starting on 03/30/2021) and review date is 04/02/21. Auth #[id number]. TATE contacted Rut at [facility] who brought this information to their morning meeting. After review, with current number of days approved by [facility], they will deny referral at this time. TATE inquired if they would accept even with Medicaid application pending and they still will not accept. TATE followed up with [facility] and [facility] and was advised they have covid in their building and are short staffed, so they can not accept referral at this time. TATE contacted Jigna at [facility] and [facility] and she requested clinical updates. TATE student, Sung faxed updates. TATE advised Jigna that patient applied for Medicaid and a CARE assessment has been completed. TATE also left a message for Bri at [facility]. TATE provided update to patient's daughter, Saray on the above.
[2021-03-31 20:47] VITALS: BP 153/47; PULSE 78; TEMP 98.4
--- NOTE | 2021-03-31 21:30 | NUR ---
Patient is resting in bed, alert and oriented, complains of pain in the back and asked to be changed since she had an incontinent BM. Assessment completed, medications provided. Hygiene provided. Pure wick in place, dressing in coccix changed. No further needs at this time. Call light within reach.
[2021-04-01 00:54] VITALS: BP 150/42; PULSE 85; TEMP 98.1
[2021-04-01 04:39] VITALS: BP 151/43; PULSE 75; TEMP 98.2
--- NOTE | 2021-04-01 05:24 | NUR ---
PT was not able to sleep along the night. She has diarrhea with brown loose stools. Several times called for assisstance with the bedpan, hygiene, repositioned, dressing replacement, purewick changed. She asked for PRN norco for her pain. Right now sleeping. Report will be given to day RN.
[2021-04-01 06:56] LABS: BASO % 0.7 % (0.0-2.0); EOS # 0.1 K/mm3 (0.0-0.7); EOS % 3.1 % (0.0-4.0); GRAN # 2.2 K/mm3 (1.4-6.5); GRAN % 74.4 % (42.2-75.2); LYMPH # 0.4 K/mm3 (1.2-3.4); MEAN CELL VOLUME 93 fl (80.0-100.0); MEAN CORPUSCULAR HGB CONC 34 g/dl (33.0-37.0); MEAN PLATELET VOLUME 9.4 fl (7.4-10.4); MONO # 0.2 K/mm3 (0.1-0.6); MONO % 7.5 % (1.7-9.3); PLATELET COUNT 52 K/mm3 (130-400); RED BLOOD COUNT 2.49 M/mm3 (4.10-5.30)
[2021-04-01 06:59] LABS: HEMATOCRIT 23.2 % (37.0-47.0); HEMOGLOBIN 7.8 g/dl (12.5-16.0); MEAN CORPUSCULAR HEMOGLOBIN 31 pg (27-31)
[2021-04-01 07:10] LABS: CALCIUM 6.8 mg/dL (8.4-10.2); CREATININE, serum 2.64 mg/dL (0.57-1.11)
[2021-04-01 08:14] VITALS: BP 140/41; PULSE 76; TEMP 98.4
--- NOTE | 2021-04-01 08:58 | NUR ---
PT RESTING IN BED. MORNING MEDICATIONS GIVEN. SHIFT ASSESSMENT COMPLETED. PT REPORTS PAIN TO BOTTOM AND BACK. PT FEELS DROWSY THIS MORNING. PICC LINE FLUSHES AND HAS GOOD BLOOD RETURN. DENIES ANY NEEDS AT THIS TIME. CONTINUING TO MONITOR.
[2021-04-01 11:08] VITALS: BP 139/39; PULSE 71; TEMP 97.9
[2021-04-01 16:00] VITALS: BP 137/35; PULSE 73; TEMP 98.3
--- NOTE | 2021-04-01 16:09 | NUR ---
[facility] declined referral. Workforce Management Coordinator spoke with Bri at [facility] who requested updates. SW provided. Additional [facility], [facility], [facility], [facility], [facility], [facility], [facility], [facility], [facility], [facility], and [facility].
[2021-04-01 20:12] VITALS: BP 155/48; PULSE 84; TEMP 98.1
--- NOTE | 2021-04-01 21:41 | NUR ---
Patient assessed around 194. Alert and oriented. Reports pain to back/bottom. Given PRN [place] for pain, and repositioned in bed. Bed bath given. Excoriation continues under breasts, abdominal folds, and groin folds. Cleansed. Mepilex changed to stage 2 pressure ulcer to coccyx. PICC to RUE. Denies SOB and dyspnea. LS CTA in upper lobes, diminished in lower. HRR. BSAx4. Abdomen soft and non-tender. Generalized edema, 2+ BLE. Voices no questions, needs, or concerns at this time. In bed with call light within reach.
[2021-04-02] VITALS (7 sets, daily range): BP systolic 123–145; BP diastolic 36–52; PULSE 70–92; TEMP 97.5–98.5
--- NOTE | 2021-04-02 05:58 | NUR ---
Patient has been in bed with call light within reach. Repositioned. Had received [place] at bedtime. Sleepy but awakens easily. Voices no questions, needs, or concerns at this time. In bed with call light within reach.
--- NOTE | 2021-04-02 11:22 | NUR ---
PT DENIES ANY PAIN AT THIS TIME. C/O DISCOMFORT ON THE OPEN SPOTS ON HER BOTTOM AND BACK. THIS RN CONTACTED FACILITY MANAGEMENT FOR AN ARJO BED D/T SIGNIFICANT WORSENING OF PRESSURE INJURIES. PT IS A&OX4, ABLE TO MOVE LEGS ON BED, BUT DIFFICULT TIME LIFTING OFF THE BED. PT ARMS ARE EASY TO MOVE AND PT DOES SO FREELY. PT IS ABLE TO TAKE ALL MEDS PO WITHOUT DIFFICULTY. NO OTHER CONCERNS AT THIS TIME. WILL CONTINUE TO MONITOR.
--- NOTE | 2021-04-02 16:20 | NUR ---
[facility], and [facility] have declined referral. At this time, has sent 25 SNF referrals with no acceptance. TATE will continue to follow up with referrals to secure placement.
--- NOTE | 2021-04-02 19:49 | NUR ---
Pt had uneventful day. Due to worsening pressure injuries, this RN requested an ARJO bed, they returned our request, and the bed will arrive 04/03/21 in the AM. No other concerns with the patient as there are no significant changes. Report given to AGA Reyna.
[2021-04-03 04:00] VITALS: BP 109/42; PULSE 100; TEMP 97.9
--- NOTE | 2021-04-03 05:21 | NUR ---
PT CLEANED, DRIED, LINENS CHANGED. NO CLINICAL CHANGES THIS SHIFT. CALL LIGHT WITHN REACH. BM RECORDED.
[2021-04-03 07:22] VITALS: BP 144/41; PULSE 77; TEMP 98
--- NOTE | 2021-04-03 07:23 | NUR ---
PT LAYING IN BED AT THIS TIME. DENIES ANY PAIN, WILL TURN PATIENT ON SIDE. PLAN FOR ARJO BED ARRIVAL SOON. NO FURTHER CONCERNS AT THIS TIME.
[2021-04-03 11:18] VITALS: BP 121/35; PULSE 70; TEMP 98.5
[2021-04-03 16:14] VITALS: BP 130/45; PULSE 71; TEMP 983.4
[2021-04-03 20:28] VITALS: BP 134/80; PULSE 79; TEMP 99
[2021-04-04] VITALS (7 sets, daily range): BP systolic 102–155; BP diastolic 35–74; PULSE 67–102; TEMP 97.6–98.7
--- NOTE | 2021-04-04 06:19 | NUR ---
PT PROVIDED THOROUGH BED BATH THIS SHIFT. ALL DRESSINGS CHANGED. PATIENT REPOSITONED Q2. BS STABLE. PT HAD NO FOOD CONSUMPTION THIS SHIFT. ALL NEEDS MET THIS SHIFT. CALL LIGHT WITHIN REACH.
--- NOTE | 2021-04-04 08:21 | NUR ---
Pt assessment complete. Pt is laying in bed upon entry, she is drowsy but arouses to voice. She is slightly disoriented but reoriented easily. Reports pain to her bottom, pericares and mepilex changed. Side alternating bed in place. Pt denies any nausea. Refusing breakfast at this time. No needs at this time. Call light within reach.
--- NOTE | 2021-04-04 18:12 | NUR ---
Pt had uneventful day, rested in bed without much activity from patient's point. Did not have much of an appetite, is going to attempt to eat dinner. Continues to have pain to bottom, worsened with pericare. Pt had many loose stools. No needs at this time. Call light within reach.
[2021-04-05 04:00] VITALS: BP 102/50; PULSE 82; TEMP 97.8
--- NOTE | 2021-04-05 06:40 | NUR ---
NO NEW CHANGES OVERNIGHT. PT COTINUES TO BE DIFFICULT TO MOTIVATE. PT CLEANED AND CHANGED AT 0615. PT PROVIDED SNACK THIS MORNING. BED CONTIUES TO REPOSTION POSITION Q2H. ALL NEEDS MET THIS SHIFT. CALL LIGHT WITHIN REACH.
[2021-04-05 07:17] VITALS: BP 123/49; PULSE 78; TEMP 97.4
--- NOTE | 2021-04-05 08:03 | NUR ---
Pt assessment complete. Pt is laying in bed upon entry, she is alert and mostly oriented. Still thinks its February. Denies any pain. No N/V. Agreeable to eating breakfast this am. Pt incontinent of loose stool and urine. Pericares provided. Barrier cream applied. Pt repositioned comfortably. No further needs. Call light within reach.
[2021-04-05 12:02] VITALS: BP 138/38; PULSE 76; TEMP 97.7
[2021-04-05 17:16] VITALS: BP 124/44; PULSE 86; TEMP 98
[2021-04-05 18:46] LABS: BASO % 1.3 % (0.0-2.0); EOS # 0.2 K/mm3 (0.0-0.7); EOS % 7.1 % (0.0-4.0); GRAN % 64.2 % (42.2-75.2); LYMPH # 0.5 K/mm3 (1.2-3.4); LYMPH % 17.4 % (20.0-51.0); MEAN CELL VOLUME 92 fl (80.0-100.0); MEAN CORPUSCULAR HGB CONC 34 g/dl (33.0-37.0); MEAN PLATELET VOLUME 8.9 fl (7.4-10.4); MONO # 0.3 K/mm3 (0.1-0.6); MONO % 9.4 % (1.7-9.3); PLATELET COUNT 63 K/mm3 (130-400); REDCELL DISTRIBUTION WIDTH-CV 20.8 % (11.5-14.5)
[2021-04-05 18:55] LABS: HEMOGLOBIN 7.4 g/dl (12.5-16.0); MEAN CORPUSCULAR HEMOGLOBIN 31 pg (27-31)
[2021-04-05 18:59] LABS: ALBUMIN 1.4 gm/dL (3.4-4.8); BILIRUBIN,TOTAL 1.8 mg/dL (0.2-1.2); CALCIUM 7.2 mg/dL (8.4-10.2); CREATININE, serum 2.53 mg/dL (0.57-1.11); POTASSIUM 4.6 mmol/L (3.5-4.5); TOTAL PROTEIN 5.1 gm/dL (6.2-8.1)
[2021-04-05 19:12] VITALS: BP 146/48; PULSE 84; TEMP 98.1
--- NOTE | 2021-04-05 19:36 | NUR ---
PT ASKING TO BE SET UP AT BEDSIDE, HAS STRONG DESIRE TO GET OUT OF BED. ASKED PT ORIENTATION QUESTIONS, THE PATIENT IS UNAWARE OF HOW LONG SHE HAS BEEN HERE, STATES THAT SHE HAS ONLY BEEN HER X1 DAY. REORIENTED PATIENT AND EXPLAINED THAT SHE HAS BEEN HER X1 MONTH. PT IS DEFINITELY MORE CONFUSED THAT SHE HAS BEEN SINCE THIS RN TOOK CARE OF HER LAST. THE PATIENT IS ON AN ARJO BED THAT IS CONTINUOUSLY TURNING HER FROM SIDE TO SIDE EVERY 30 MINUTES. THIS RN PLACED HER ON STATIC MODE FOR A SHORT WHILE TO HELP THE PATIENT BECOME RELAXED.
--- NOTE | 2021-04-05 19:40 | NUR ---
Pt continued to be incontinent of stool and urine throughout the day, pericares provided. Remains on an alternating side mattress. Pt's family concerned of worsened confusion, have not noticed a notable change in mental status this shift but HOUSE DECORATOR notified and orders rec'd. Only complaints of pain are to coccyx when recieving pericares. Decreased appetite. Family was able to get the patient to drink supplemental drink for dinner.
--- NOTE | 2021-04-05 22:54 | NUR ---
PT HAS BECOME MORE CONFUSED AND DOES NOT RECALL BEING IN THE HOSPITAL FOR LONG SHE HAS BEEN. SHE IS WANTING TO SIT AND STAND UP. PT IS A MAX ASSIST TO SIT UP AND DANGLE FEET. WILL PASS ON TO DAY SHIFT THE PATIENT'S DESIRE TO SIT UP TOMORROW.
[2021-04-06] VITALS (7 sets, daily range): BP systolic 102–139; BP diastolic 52–81; PULSE 78–93; TEMP 97.5–98.4
--- NOTE | 2021-04-06 07:02 | NUR ---
NO CONCERNS THROUGH THE NIGHT. THE PATIENT DID SEEM MORE CONFUSED THAN BASELINE. NO FURTHER CONCERNS. REPORT GIVEN TO AGA ECHOLS.
[2021-04-06 07:04] LABS: BASO % 1.1 % (0.0-2.0); EOS # 0.2 K/mm3 (0.0-0.7); EOS % 6.2 % (0.0-4.0); GRAN # 2.3 K/mm3 (1.4-6.5); GRAN % 65.2 % (42.2-75.2); LYMPH # 0.6 K/mm3 (1.2-3.4); LYMPH % 17.4 % (20.0-51.0); MEAN CELL VOLUME 92 fl (80.0-100.0); MEAN CORPUSCULAR HGB CONC 33 g/dl (33.0-37.0); MEAN PLATELET VOLUME 9.2 fl (7.4-10.4); MONO # 0.4 K/mm3 (0.1-0.6); MONO % 9.8 % (1.7-9.3); PLATELET COUNT 78 K/mm3 (130-400); RED BLOOD COUNT 2.37 M/mm3 (4.10-5.30); REDCELL DISTRIBUTION WIDTH-CV 21.1 % (11.5-14.5)
[2021-04-06 07:05] LABS: HEMATOCRIT 21.9 % (37.0-47.0); HEMOGLOBIN 7.3 g/dl (12.5-16.0); MEAN CORPUSCULAR HEMOGLOBIN 31 pg (27-31)
[2021-04-06 07:23] LABS: CALCIUM 7.3 mg/dL (8.4-10.2); CREATININE, serum 2.47 mg/dL (0.57-1.11); MAGNESIUM 2.1 mg/dL (1.6-2.6); POTASSIUM 4.6 mmol/L (3.5-4.5)
--- NOTE | 2021-04-06 09:10 | NUR ---
Shift assessment complete. Pt in Arjo bed. Alert, disoriented. Pt moving hands around w/o purpose. Conversation confused and pt continues to say "I'm getting up now, I'll be right back." Generalized weakness and pt unable to assist in turns. This RN and another RN turned pt in bed and cleaned up pt after incontinence of urine and stool. Pt having frequent but small loose stools. Denies needs at this time. Pt's daughter updated via phone. Continuing to monitor.
--- NOTE | 2021-04-06 11:46 | NUR ---
Attemtped to talk with patient at bedside but she seems disinterested and not really tracking the conversation but agreed to let me talk with her children. Call made to Saray, patient's daughter at #[phone]. Discussed goals of care and if transitioning to hospice or palliative type services would be of any benefit to Eve. Saray is very aware of her mother's change in mental status and lack of progress with therapy. She is going to discuss things with her siblings and we will talk again tomorrow. Gave Saray my direct number and told her to share it with her siblings if they have any questions as well. Notified SW and hospitalist team of discussion.
--- NOTE | 2021-04-06 12:04 | NUR ---
Received phone call from Weston, patient's daughter. We discussed patient's status and options moving forward. Weston also stated she would need to talk things over with her siblings but would appreciate updates from the hospitalist, either to her or Saray. Weston's cell #[phone], work #[phone]
--- NOTE | 2021-04-06 16:23 | NUR ---
Nyla Fenton in [place] requested updates and the patient's Care Assessment. Updates and the Care Assessment were emailed to Nyla Fenton. A palliative care consult was ordered. Geno spoke to the patient's daughters: Antonio and Weston. Weston would like to see if the patient's mentation clears up in the next couple of days. TATE contacted Saray and updated her on referrals. TATE also informed Saray how if they are looking to transition to hospice, room and board at a facility would not be covered and would be private pay. Saray verbalized understanding.
--- NOTE | 2021-04-06 18:03 | NUR ---
Pt more weak and confused today. Has become a little more lucid throughout day but remains overall confused. Unable to asssist w/turns in bed. Did sit in recliner for an hour this afternoon w/assistance of 3 PTs and keyla lift. Continues to be incontinent of stool and urine. Purewick in place. Sacral heart dressing placed to coccyx ulcer. Dressing changed to ulcer on right lower back. Pt resting in bed at this time.
--- NOTE | 2021-04-06 22:44 | NUR ---
Patient assessed around 1940. Drowsy, awakens easily. Confused, disoriented. Reported pain to bottom. Given scheduled APAP per orders, which patient reported later on helped. Daughter Saray in to visit patient. Questions answered. Excoriation to breast, pannus, and groin folds cleansed, and new moist wicking cloth put in place. Dressing to left breast, pressure ulcer to back, and pressure ulcer to bottom are CDI. Purewick external female catheter in place. In bed with call light within reach.
[2021-04-07 00:05] LABS: COLLECTION METHOD CLEAN CATCH
[2021-04-07 00:21] LABS: MUCOUS Present (NOT PRESENT); PH 8 (5-8); SQUAMOUS EPITHELIAL 0-2 /hpf (0-10); URINE APPEARANCE Turbid (CLEAR/HAZY); URINE BACTERIA Many /hpf (NONE SEEN); URINE BILIRUBIN Negative (NEGATIVE); URINE BLOOD 2+ (NEGATIVE); URINE COLOR Amber (YELLOW); URINE GLUCOSE Negative (NEGATIVE); URINE KETONE Negative (NEGATIVE); URINE LEUKOCYTE ESTERASE 2+ (NEGATIVE); URINE NITRATE Negative (NEGATIVE); URINE PROTEIN(semi-quant) 2+ (NEGATIVE); URINE RBC 20-50 /hpf (0-2); URINE TRIPLE PHOSPHATE CRYSTAL Present (NOT PRESENT); URINE UROBILINOGEN >=4.0 (NEGATIVE)
[2021-04-07 03:36] VITALS: BP 138/53; PULSE 92; TEMP 97.5
--- NOTE | 2021-04-07 06:31 | NUR ---
Patient has been in bed with call light within reach. UA obtained, started on Rocephin per orders. Having lots of BMs again tonight. Purewick was not put back in place due to this.
[2021-04-07 07:02] LABS: EOS # 0.3 K/mm3 (0.0-0.7); EOS % 6.1 % (0.0-4.0); GRAN # 2.5 K/mm3 (1.4-6.5); GRAN % 62.4 % (42.2-75.2); LYMPH # 0.9 K/mm3 (1.2-3.4); LYMPH % 21.4 % (20.0-51.0); MEAN CELL VOLUME 92 fl (80.0-100.0); MEAN CORPUSCULAR HGB CONC 34 g/dl (33.0-37.0); MEAN PLATELET VOLUME 8.8 fl (7.4-10.4); MONO # 0.4 K/mm3 (0.1-0.6); MONO % 8.6 % (1.7-9.3); PLATELET COUNT 87 K/mm3 (130-400); RED BLOOD COUNT 2.38 M/mm3 (4.10-5.30); REDCELL DISTRIBUTION WIDTH-CV 21.2 % (11.5-14.5)
[2021-04-07 07:08] LABS: HEMATOCRIT 21.9 % (37.0-47.0); HEMOGLOBIN 7.4 g/dl (12.5-16.0); MEAN CORPUSCULAR HEMOGLOBIN 31 pg (27-31)
[2021-04-07 07:13] LABS: CALCIUM 7.4 mg/dL (8.4-10.2); CREATININE, serum 2.47 mg/dL (0.57-1.11); POTASSIUM 4.5 mmol/L (3.5-4.5)
[2021-04-07 07:53] VITALS: BP 138/37; PULSE 86; TEMP 97.2
--- NOTE | 2021-04-07 08:00 | NUR ---
Patient repositioned for comfort, incontinent of BM and urine. Alert, but drowsy and confused. Nurse reorienting the patient. Moaning in the bed, patient stopped moaning and was resting after being repositioned in bed. VSS. IV CDI. Bed assisting with repositioning the patient. Nursing staff will assist with feeds. No further needs expressed. Call light within reach
--- NOTE | 2021-04-07 09:48 | NUR ---
Received phone call from daughter, Weston. She states neighter her nor her sister heard from a provider yesterday. Able to give Weston an update about UA and start of IV antibiotics. She requested to be called during rounds and for clarification on visitor policy. She also mentioned that in the past her mother had been a DNR but wasn't sure anything was in writing or if her mother had changed her mind on admit. Discussed with care team and TATE.
--- NOTE | 2021-04-07 11:45 | NUR ---
Patient taken to CT on bed
[2021-04-07 12:00] VITALS: BP 132/52; PULSE 79; TEMP 97.5
--- NOTE | 2021-04-07 14:58 | NUR ---
Met with daughter Saray at bedside with Weston on speaker phone and Dr. Nichole. Dr. Nichole explained the current treatment planned and I followed up to answer questions and clarify a few things. Eve's daughters are in agreement that half-way or rehab is not realistic for their mother and that she is not safe to return home so feel long-term care is the direction they need to go. I discussed insurance issues they may face moving forward and that room and board would be [id number]. They verbalized understanding. Weston would very much like to see if Eve returns to a fully oriented state and be able to participate in conversations about her care. I let Saray and Weston know that I support that decision and would follow along and help in anyway I can moving forward. Notified SW of discussion as well.
[2021-04-07 15:37] VITALS: BP 135/59; PULSE 82; TEMP 97.4
--- NOTE | 2021-04-07 16:13 | NUR ---
The patient's daughter, Saray, met with the hospitalist and palliative care RN this afternoon. The patient's other daughter, Weston, was on speaker phone. The patient's daughters would like to look into LTC for the patient now, not SNF. They realize the patient is not working with therapy. They would also like to see if the patient's mentation clears up after receiving the antibiotics for the UTI. SW contacted Saray and reviewed the above. Saray confirms that they would like to pursue LTC. SW informed Saray that even if the patient is Medicaid pending, LTC facilities may have them pay out of pocket. Saray verbalized understanding and reports that the patient and the family does not have money to pay for the facility in that event. She states that she is trying to get the patient approved for VA benefits. Meena, at [facility] reports that she has sent the updates to their administration and DON, but have not heard back yet. She states that she will get in touch with SW once they do. [facility] in [place] reports that they do not have any beds available at this time. [facility] [place] reports that they do not have a LTC beds available at this time. TATE left messages for [facility] in [place], [facility], [facility], and [facility]. [facility] [place] asked that SW contact them back tomorrow.
--- NOTE | 2021-04-07 18:11 | NUR ---
Patient had an uneventful day, has been sleeping off and on and restless when awake. Nursing staff repositioned the patient for comfort. Alert, drowsy and partially confused. Denies pain. IV CDI, fluids infusing. Nursing staff assisting with feeding the patient. Patient has had several loose stools. No further needs expressed. Call light within reach.
[2021-04-07 20:41] VITALS: BP 129/62; PULSE 95; TEMP 98.1
[2021-04-07 23:39] VITALS: BP 130/60; PULSE 90; TEMP 98.5
[2021-04-08 04:31] VITALS: BP 104/71; PULSE 83; TEMP 97.8
--- NOTE | 2021-04-08 05:54 | NUR ---
PT HAS REMAINED SOMNOLENT FOR MOST OF THIS SHIFT. PT REPOSITIONED Q30MIN BY PT BED. D5 1/2 NS INFUSING AT 60CC/HR TO RIGHT UPPER PICC. PT APPEARS PALE, FRAIL, COOL , PULSES ARE WEAK. PT IS ABLE TO MINIMALLY VERBALLY RESPOND. BS STABLE. ALL NEEDS MET THIS SHIFT. BED ALARM ON. PT VISIBLE TO NURSES STATION.
[2021-04-08 06:40] LABS: EOS # 0.2 K/mm3 (0.0-0.7); EOS % 5.3 % (0.0-4.0); GRAN # 2.6 K/mm3 (1.4-6.5); GRAN % 65.8 % (42.2-75.2); LYMPH # 0.8 K/mm3 (1.2-3.4); LYMPH % 19.8 % (20.0-51.0); MEAN CELL VOLUME 91 fl (80.0-100.0); MEAN CORPUSCULAR HGB CONC 34 g/dl (33.0-37.0); MEAN PLATELET VOLUME 9.5 fl (7.4-10.4); MONO # 0.3 K/mm3 (0.1-0.6); MONO % 7.8 % (1.7-9.3); PLATELET COUNT 75 K/mm3 (130-400); RED BLOOD COUNT 2.14 M/mm3 (4.10-5.30); REDCELL DISTRIBUTION WIDTH-CV 21.2 % (11.5-14.5)
[2021-04-08 06:45] LABS: HEMATOCRIT 19.5 % (37.0-47.0); MEAN CORPUSCULAR HEMOGLOBIN 31 pg (27-31)
[2021-04-08 06:48] LABS: HEMOGLOBIN 6.6 g/dl (12.5-16.0)
[2021-04-08 06:51] LABS: CALCIUM 7.1 mg/dL (8.4-10.2); CREATININE, serum 2.42 mg/dL (0.57-1.11); POTASSIUM 4.2 mmol/L (3.5-4.5)
--- NOTE | 2021-04-08 06:56 | NUR ---
CRITICAL HGB OF 6.[address] ALEXANDER AT THIS TIME. HE STATES HE WILL COME SEE HER.
[2021-04-08 08:00] VITALS: BP 97/71; PULSE 80; TEMP 95.8
[2021-04-08 11:04] LABS: ALBUMIN 1.4 gm/dL (3.4-4.8); TOTAL PROTEIN 4.8 gm/dL (6.2-8.1)
[2021-04-08 12:00] VITALS: BP 141/44; PULSE 78; TEMP 97.7
--- NOTE | 2021-04-08 13:26 | NUR ---
Jan, at [facility] in [place], reports that they are short staff and not to accept any patient's at this time.
--- NOTE | 2021-04-08 15:47 | NUR ---
Met with Saray, her son, Dr. Nichole, and primary nurse at bedside with Karo on speaker phone. They confirmed DNR/DNI and no aggressive measures like LP for the patient. They say comfort is the most important thing for the patient but will be discussing more as a family tonight.
[2021-04-08 16:00] VITALS: BP 120/98; PULSE 79; TEMP 96.3
--- NOTE | 2021-04-08 16:16 | NUR ---
The patient's daughters: Saray and Karo have made the patient a DNR/DNI today. They plan on having further discussions tonight about transitioning the patient to hospice. TATE contacted Atul, at [facility], to inquire if they would reconsider the patient on hospice. Atul asked for updates. TATE faxed updates to [facility]. Angelia, at [facility], reports that they would still not be able to take the patient.
--- NOTE | 2021-04-08 16:26 | NUR ---
TATE attempted to contact [facility] and [facility] to inquire if the would consider the patient on hospice. Their intake coordinators were already out for the day. TATE left them messages.
--- NOTE | 2021-04-08 19:43 | NUR ---
PT FAMILY HAS BEEN AT BEDSIDE DISCUSSING PALLIATIVE CARE. THE FAMILY HAS DECIDED TO DISCUSS HOSPICE AND JAMAAL PALLIATIVE RN WAS ON SPEAKER PHONE WITH THE FAMILY TO DISCUSS OPTIONS ALONG WITH THIS RN. THEY WOULD LIKE TO TALK TO SOCIAL WORK REGARDING INSURANCE AND HOW THAT WORKS. THEY ALSO WANTED TO ENSURE THAT WE WOULD NOT "KICK THEM OUT OF THE HOSPITAL BECAUSE THEY CHOOSE HOSPICE." AGA HINTON ENCOURAGED THEM THAT DELILAH WILL STAY WITH US UNTIL WE HAVE A DEFINITE PLACE FOR HER TO GO, WHETHER THAT IS SNF WITH HOSPICE, OR [facility]. FAMILY IS AGREEABLE, AND READY FOR DELILAH TO BE COMFORTABLE. WILL CONTACT PROVIDER TO DISCUSS THIS CONVERSATION.
[2021-04-08 20:57] VITALS: BP 106/54; PULSE 64; TEMP 97.4
[2021-04-09 00:09] VITALS: BP 111/54; PULSE 63; TEMP 97.4
[2021-04-09 05:00] VITALS: BP 142/56; PULSE 78; TEMP 97.4
--- NOTE | 2021-04-09 05:19 | NUR ---
PT REMAINED UNRESPONSIVE ALL NIGHT. THIS NURSE UPDATED PTS DAUGHTER AT 0300 PT PT STATUS. PULSES WEAK. BED ALARM ON. D5 1/2 NS INFUSING AT 60CC/HR TO R PICC. ALL NEEDS MET AT THIS TIME.
--- NOTE | 2021-04-09 08:00 | NUR ---
Patient opens right eye with verbal command, but no verbal response. Patient incontinent of urine and BM, nursing staff cleaned patient and repostioned for comfort. IV CDI, fluids infusing. No t alert enough to take in PO. Waiting on family for futher plan of care. Call light within reach
[2021-04-09 08:47] VITALS: BP 132/38; PULSE 72; TEMP 97.8
[2021-04-09 09:55] LABS: BASO % 1.1 % (0.0-2.0); EOS # 0.2 K/mm3 (0.0-0.7); EOS % 6.6 % (0.0-4.0); GRAN # 2.1 K/mm3 (1.4-6.5); GRAN % 58.6 % (42.2-75.2); LYMPH # 0.8 K/mm3 (1.2-3.4); LYMPH % 23.7 % (20.0-51.0); MEAN CELL VOLUME 91 fl (80.0-100.0); MEAN CORPUSCULAR HGB CONC 34 g/dl (33.0-37.0); MONO # 0.3 K/mm3 (0.1-0.6); MONO % 9.7 % (1.7-9.3); PLATELET COUNT 71 K/mm3 (130-400); RED BLOOD COUNT 2.09 M/mm3 (4.10-5.30); REDCELL DISTRIBUTION WIDTH-CV 21.4 % (11.5-14.5)
--- NOTE | 2021-04-09 09:57 | NUR ---
TATE attempted clinical rounds. The patient's daughter, Saray, at bedside. The patient's family has decided to make the patient comfort measures. Saray asks that SW meet with her and her two siblings at 1400 today to review options and plans. TATE inquired if Saray had found the patient's DPOA-HC. Saray reports that they have not. She states that [facility] or [facility] may have her DPOA-HC on file. TATE contacted Medical Records at [facility]. The soft tile setter reports that they do not have one on file. TATE attempted to contact Leidy at [facility]. SW left her a voicemail. Saray confirms that the patient has three children: Saray, Karo, and Héctor and they have all been involved with the patient's care.
[2021-04-09 09:59] LABS: HEMATOCRIT 19.1 % (37.0-47.0); MEAN CORPUSCULAR HEMOGLOBIN 31 pg (27-31)
[2021-04-09 10:00] LABS: HEMOGLOBIN 6.5 g/dl (12.5-16.0)
[2021-04-09 10:10] LABS: CREATININE, serum 2.46 mg/dL (0.57-1.11); POTASSIUM 4.1 mmol/L (3.5-4.5)
--- NOTE | 2021-04-09 10:26 | NUR ---
Met with daughter during rounds this am. She reports that the family has spoken and would like to have her on comfort care at this time. Comfort quilt provided with explanation and small spray bottle provided to help moisturize mouth and demonstrated to daughter. Plan for additional family meeting for questions around 2pm this afternoon.
--- NOTE | 2021-04-09 11:28 | NUR ---
Leidy, at [facility], returned TATE's phone call. Leidy reports that they do have a copy of the patient's DPOA-HC and emailed it to this SW. TATE placed the document in the patient's chart. The patient's DPOA-HC is her daughter, Lena Castillo". The alternates are her other two children: Héctor and Saray. TATE updated Saray.
--- NOTE | 2021-04-09 15:41 | NUR ---
TATE Bee, and Yuko Cheng RN met with daughter and son/spouse this afternoon. They are all in agreement for comfort care and advise us that caring for her in her home would not be possible. I am told that pt had completed a medicaid wan earlier but it is still pending. Family reports that they were advised that only 3 people could visit at a time by client solutions manager. Some of the relatives have difficulty walking distances and they are frustrated that they may need help with wheelchairs and yet cannot be allowed to enter building to provide this. Encouraged them to contact entrance staff or nursing staff for further assistance. Support provided.
--- NOTE | 2021-04-09 16:21 | NUR ---
Atul, at [facility], reports that they are considering the patient. Atul reports that they would require payment up frontfor a month's stay. Total: $8,610. Once the patient's Medicaid was approved, it would be retroactive and they would receive that money back. TATE attended a family meeting with the patient's daughter (Karo), son (Héctor, ph#[phone]), and [id number]. Also present was palliative care RN, Yuko. TATE started by explaining of the purpose of the meeting and to review the options for hospice. Karo confirms that they want to pursue comfort care. Karo reports that they would not be able to take care of the patient at home. They are looking at pursuing hospice at a facility. TATE informed them of [facility] and the cost. The patient's family reports that they do not have that amount of money right now to pay that. Karo would like to have a meeting with our financial counselor and to review Medicaid application. Karo reports that once she does that and figures out finances, she will contact this TATE. Karo then contacted TATE back and reports that she is not able to meet with Eunice until Tuesday. TATE also provided her with Atul at [facility]'s phone number to be able to ask them questions.
--- NOTE | 2021-04-09 17:34 | NUR ---
Patient resting in bed, Alert, but drowsy. Family and friends have been at the bedside through out the shift. VSS. IV CDI. Nursing staff changing and repositioning patient as needed. Patient not alert enough for PO intake. Denies pain. No further needs expressed. Call light within reach
--- NOTE | 2021-04-10 05:58 | NUR ---
PT DAUGHTER AT BEDSIDE, NO CLNICAL CHANGES OVERNIGHT. PT COGNITIVE REMAINS CLOUDED AND DISORIENTED. PT NOT ABLE TO FOLLOW COMMANDS AT THIS TIME. PT LAST CHANGED AT 0600 THIS MORNING. ABX ADMINISTERED ORDERED. ALL NEEDS MET THIS SHIFT. CALL LIGHT WITHIN REACH.
--- NOTE | 2021-04-10 08:00 | NUR ---
Patient and daughter sleeping in the room. Patient on comfort care and VS per family request. Nurse will let the patient rest. Call light within reach
--- NOTE | 2021-04-10 15:07 | NUR ---
Leidy, at [facility], reports that they can take the patient; but would need to confirm insurance and need a copy of the patient's completed Medicaid application for them to review it first, before they officially accept or not. Financial Counseling is out today. SW to follow up with Financial Counseling on Tuesday.
--- NOTE | 2021-04-10 17:37 | NUR ---
Patient has been resting in bed, with family coming throughout the day. Patient has been alert at times, but mostly resting with eyes closed. IV VDI. Patient repositioned for comfort and changed as needed. No further needs expressed. Call light within reach
--- NOTE | 2021-04-10 21:00 | NUR ---
Patient is resting in bed with family DPOR at the bedside. Eyes closed but able to answer some questions. Assessment completed. O2 checked per family request 99% sat. Continue monitoring.
--- NOTE | 2021-04-11 07:06 | NUR ---
Patient has had a calm night. Hygiene was provided at least twice r/t urine incontinence. Pt family asked to measure her levels of O2. sat at 99% RA. Pt received her doses of antibiotics. Family member was with her along the night. Report given to day RN.
--- NOTE | 2021-04-11 09:13 | NUR ---
DAUGHTER ELVIS IS AT BEDSIDE WITH PATIENT. THE PATIENT IS UNRESPONSIVE TO VOICE AND TOUCH. BREATHING IS SHALLOW. NO OTHER CONCERNS AT THIS TIME.
--- NOTE | 2021-04-11 19:30 | NUR ---
Patient is sleeping in bed with family at bedside. She is getting antibiotics. Assessment completed. No further needs at this time. Call light within reach.
--- NOTE | 2021-04-12 06:20 | NUR ---
Patient has had a calm night. Family at the bedside. Unable to answer questions. Hygiene provided twice. She just opened her right eye but unable to speak. Continue getting Zosyn. Report will be given to day RN.
--- NOTE | 2021-04-12 18:27 | NUR ---
Patient has had an uneventful day. PRN pain medication given 1x this shift, to help with pain during bed bath. Patient repositioned q2. No s/s of pain or discomfort at this time. Call light in reach. Family at the bedside.
--- NOTE | 2021-04-12 22:02 | NUR ---
Patient assessed around 2029. Daughter Saray in with patient. Requested IV fluids, and order received from CURTIS Martin and started per cisco. Patient on bed that automatically repositions her. Does no have outward s/sx of pain or discomfort at this time, such as facial grimacing and moaning. Saray voices no questions, needs, or concerns at this time. Encouraged to call if needed, and voiced understanding.
--- NOTE | 2021-04-13 06:10 | NUR ---
Patient continues on IV fluids per orders, and recieved IV ABX per orders. Received PRN Roxanol once this shift. Changed in bed, incontinent of bladder, no BM. Daughter Saray remains at bedside. Voices no questions, needs, or concerns at this time. Encouraged daughter to call if she needed anything, and voiced understanding.
--- NOTE | 2021-04-13 10:26 | NUR ---
PT LAYING IN BED, NOT RESPONDING TO QUESTIONS OR OPENING EYES. DAUGHTER AT BEDISDE. MORNING MEDICATIONS GIVEN. SHIFT ASSESSMENT COMPLETED. WILL CONTINUE TO MONITOR.
--- NOTE | 2021-04-13 12:09 | NUR ---
The unit aid notified TATE that the patient's daughter, Saray, was asking to speak to a social scientist, but refused to speak to this SW. The unit aid notified TATE that Saray made the comment that if this SW went into her room to talk to her or give an update, she would go to retirement today. TATE followed up with Leidy at [facility] on the referral. Leidy is requesting a copy of the patient's Medicaid application. She states that she needs to check to see if the patient's family would have any out of pocket costs. TATE contacted Eunice with financial counseling and requested a copy of the patient's Medicaid application. Awaiting the application. Eunice reports that the patient's daughter, Karo, had to cancel their appointment today, due to previous engagements and being sick. TATE contacted Zeinab at [facility]. Zeinab reports that they have had some changes and may have some openings coming up. TATE emailed Zeinab a referral. Zeinab reports that they would not be able to admit today, but will keep SW posted. TATE contacted and updated the patient's daughter/DPOA-HC, Karo, on the above. Karo reports that she is at her doctor's office, but will contact TATE back. TATE then received a phone call back from Karo. Karo informed TATE that she is worried about the patient moving and feels that it would be inhumane to move her. TATE updated her about [facility] and [facility]. Naykailaruth asked for [facility]'s phone number, so that she could call them. TATE provided her with their phone number. TATE updated the PA on the above. The hospitalist plans to contact the patient's daughter, Karo, to update her on the patient's status. The clinical team does not feel that is iminent at this time.
--- NOTE | 2021-04-13 15:42 | NUR ---
Customer Facilities Supervisor received a message from Leidy at [facility] that they would be declining referral at this time. Leidy advised that patient has an outstanding bill from when she previously lived there.
[2021-04-13 15:51] VITALS: BP 127/43; PULSE 77; TEMP 98.7
--- NOTE | 2021-04-14 04:55 | NUR ---
COMFORT MEASURE MAINTATINED THIS SHIFT. PT REPOSITIONED Q2, ABX ADMINISTERED. PT PULSES WEAK AND DIFFICULT TO FIND, PT RUE +2 PITT[address] EDEMA[address] PICC IN PLACE. ALL NEEDS MET THIS SHIFT. BED ALARM ON.
[2021-04-14 05:21] VITALS: BP 126/42; PULSE 78; TEMP 98.4
--- NOTE | 2021-04-14 08:54 | NUR ---
TATE received a voicemail from the patient's daughter, Karo, stating that her sister, Saray, talked to Zeinab at the hospice house and the hospice house may have a bed soon for the patient. TATE then contacted Zeinab at the [facility]ospice [facility] to follow up. Zeinab reports that they may have a bed later this week for the patient and possibly able to get her in. She states that if something were to change today, they may be able to get her in today. She will keep TATE posted. TATE contacted the patient's daughter/DPOA-HC, Karo, and updated her on the above. Karo reports that her and her family would like to pursue with the hospice house and are in agreement to the plan. *Discharge plan: [facility]*
[2021-04-14] MEDS ORDERED: ATROPINE 2 ML2 ML SL (10:13)
[2021-04-14] MEDS ORDERED: SYSTANE 0.3-0.1 EACH OP (10:15)
[2021-04-14] MEDS ORDERED: TRANSDERM-0.5 MG/21 TD (10:15)
[2021-04-14] MEDS ORDERED: COMPAZINE25 MG/SUPP RC (10:15)
[2021-04-14] MEDS ORDERED: DULCOLAX S10 MG/SUPP RC (10:15)
[2021-04-14] MEDS ORDERED: BLUE-EMU LIDOC1 EACH TP (10:15)
[2021-04-14] MEDS ORDERED: [UNRECOGNIZED DRUG - OTHER] TP (10:16)
[2021-04-14] MEDS ORDERED: ATIVAN 1MG T1 MG/TAB PO (10:17)
[2021-04-14] MEDS ORDERED: ROXANOL 20MG20 MG/ML SL (10:17)
[2021-04-14 10:22] VITALS: BP 126/42; PULSE 78; TEMP 98.4
--- NOTE | 2021-04-14 11:48 | NUR ---
Zeinab, at the [facility], reports that they are able to accept the patient today and asked for a 1230 transport time. She also asked for a copy of the patient's Medicaid application. TATE notified the clinical team. TATE contacted and updated the patient's daughter/DPOA-HC, Karo. Karo is in agreement to the plan. TATE informed her of the IM and EMS consent Form. TATE read the IM form outloud to Karo over the phone. Karo reports that her and her sister, Saray, will be up to the hospital around 1130 and she asked to sign the forms then. Veronica, secondary social studies teacher, to to present and review the IM and EMS forms to Karo and Saray. The patient is to discharge today, 04/14, to the [facility]. Orders and the patient's Medicaid application emailed to Zeinab at [facility]. Transportation was scheduled at 1230, via [facility]. TATE informed the patient's RN and Karo of the transport time. No additional needs at this time.
--- NOTE | 2021-04-14 12:43 | NUR ---
Patient's daughter Rebekah signs MCR.IM form on behalf of patient. Original placed in chart and copy provided to Rebekah. Informed Rebekah and Saray that [facility]. Rebekah requests a copy of the patient's DPOA-HC and a copy of the patient's JERILYN application. Forms provided.
--- NOTE | 2021-04-14 14:45 | NUR ---
The patient was transferred to [facility] house with the family at bedside. No other concerns.
== END 2021-04-14 13:45 | disposition hospice, inpatient (51) | DRG 871 ==
LOC: COL.ER 14:35 → MEDICAL 18:34
PROVIDERS: Emergency Medicine; Internal Medicine; Nurse Practitioner; Physician Assistant; Student in an Organized Health Care Education/Training Program; ADMIT Internal Medicine
PROC: 02HV33Z Insertion of Infusion Device into Superior Vena Cava, Percutaneous Approach (ICD-10-PCS; principal; 2021-03-13)
PROC: 30233N1 Transfusion of Nonautologous Red Blood Cells into Peripheral Vein, Percutaneous Approach (ICD-10-PCS; 2021-03-26)
DX: A41.89 Other specified sepsis (principal); U07.1 COVID-19; I61.5 Nontraumatic intracerebral hemorrhage, intraventricular; N17.9 Acute kidney failure, unspecified; D61.818 Other pancytopenia; N39.0 Urinary tract infection, site not specified; M62.82 Rhabdomyolysis; D62 Acute posthemorrhagic anemia; E87.2 Acidosis; N18.4 Chronic kidney disease, stage 4 (severe); I13.0 Hypertensive heart and chronic kidney disease with heart failure and stage 1 through stage 4 chronic kidney disease, or unspecified chronic kidney disease; K92.2 Gastrointestinal hemorrhage, unspecified; Z66 Do not resuscitate; Z51.5 Encounter for palliative care; E03.9 Hypothyroidism, unspecified; I48.91 Unspecified atrial fibrillation; I12.9 Hypertensive chronic kidney disease with stage 1 through stage 4 chronic kidney disease, or unspecified chronic kidney disease; K75.81 Nonalcoholic steatohepatitis (NASH); E11.22 Type 2 diabetes mellitus with diabetic chronic kidney disease; E11.649 Type 2 diabetes mellitus with hypoglycemia without coma; L89.92 Pressure ulcer of unspecified site, stage 2; J32.4 Chronic pansinusitis; I08.1 Rheumatic disorders of both mitral and tricuspid valves; D63.1 Anemia in chronic kidney disease; I50.9 Heart failure, unspecified; E87.5 Hyperkalemia; G89.29 Other chronic pain; D69.6 Thrombocytopenia, unspecified; I51.89 Other ill-defined heart diseases; S00.81XA Abrasion of other part of head, initial encounter; E66.01 Morbid (severe) obesity due to excess calories; K59.00 Constipation, unspecified; E83.52 Hypercalcemia; F41.9 Anxiety disorder, unspecified; E78.5 Hyperlipidemia, unspecified; R63.4 Abnormal weight loss; W18.30XA Fall on same level, unspecified, initial encounter; Y92.009 Unspecified place in unspecified non-institutional (private) residence as the place of occurrence of the external cause; Z99.3 Dependence on wheelchair; Z88.5 Allergy status to narcotic agent; Z88.1 Allergy status to other antibiotic agents
CPT/HCPCS: 99223-AI; 99231-AI; 99232-AI; 99233-AI; 99239; A4314; A9284; C1751; J0456; J0696; J1644; J1815; J1940; J2060; J2270; J2405; J2543; J7030; J7050; P9016